=== PATIENT | female | born 1945 | race Caucasian/White ===

== ENCOUNTER 2017-07-26 17:18 | Observation (INO) | payer MEDICARE, OTHER, SELFPAY ==
[2017-07-26] VITALS (7 sets, daily range): BP systolic 123–190; BP diastolic 53–73; PULSE 45–62; RESP 18; TEMP 36.3–36.7; O2SAT 96–99; BMI 30.1
--- NOTE | 2017-07-26 17:59 | PCM.HP.STD ---
Problem List (1) Chest pain Status: Acute (2) Syncope Status: Acute (3) LBBB (left bundle branch block) Status: Chronic (4) HTN (hypertension) Status: Chronic (5) Lactic acidosis Status: Acute History of Present Illness Date of Admission: 07/26/17 Chief Complaint: chest pain. syncope The patient is a 71 year old F who is on the toilet and then had severe abdominal pain then had a syncopal episode. Patient was when she came to patient was not feeling well and told her to contact EMS. Patient walked out to EMS and then started expressing left upper shoulder chest pain as well as numbness down her left arm. Patient did receive nitroglycerin which resolved that. Patient has never had chest pain before and never had abdominal pain like this before. Went to [facility] and patient received aspirin, Tylenol and nitroglycerin. Patient had a CAT scan of her abdomen pelvis that showed some constipation. Patient stated that she did have a bowel movement before the syncopal episode and also after the CAT scan that were normal. She is currently symptom-free at this time. [] Past Medical History Past Medical History (Chronic Problems): Chronic Problems LBBB (left bundle branch block) (Chronic) HTN (hypertension) (Chronic) Allergies hydrochlorothiazide Allergy (Verified 07/26/17 17:37) Unknown codeine Adverse Reaction (Verified 07/26/17 17:37) Unknown Home Medications: Ambulatory Orders Medication Instructions Recorded Aspirin 81 mg PO DAILY 07/26/17 Lisinopril [Zestril] 5 mg PO DAILY 07/26/17 Surgical History: cholecystectomy, hysterectomy Psychiatric History: No pertinent psych hx Smoking Status: Never smoker Tobacco Use: Non-smoker Alcohol: None - *Family History Maternal History Items: Heart Disease Paternal History Items: Heart Disease Sibling History Items: Clotting Disorder, Heart Disease Review of Systems Constitutional: Denies: Chills, Fever, Weight Change Eyes: Denies: Blurred vision, Double vision HEENT: Denies: Head Aches, Sinus Congestion, Sinus Drainage Cardiovascular: Reports: Chest Pain. Denies: Edema Respiratory: Denies: Cough, Shortness of breath at rest, Sputum production Gastrointestinal: Reports: Abdominal Pain. Denies: Constipation, Diarrhea, Nausea, Vomiting Genitourinary: Denies: Dysuria, Frequency Musculoskeletal: Denies: Joint Pain, Joint Tenderness Skin: Denies: Rash, Wounds Neurological: Denies: Numbness, Tingling, Focal weakness Psychiatric: Denies: Anxiety, Depression Hematologic/ Lymphatic: Denies: Easy Bruising, Easy Bleeding, Hx of blood clot VTE Information - Inpt Only VTE Present on Admission: No VTE Pharm Prophylaxis ordered?: Yes Patient Problems: Active and Suspected Problems Chest pain (Acute) Syncope (Acute) Lactic acidosis (Acute) - Physical Exam General: Alert, Cooperative, No apparent distress HEENT: Atraumatic, Normocephalic Oral: Moist Mucosa, No Gingival or Mucosal Lesions/ Ulcerations Neck: No Nodes, Thyroid Normal Size and Texture Lungs: Clear to auscultation, Normal air movement, No rhonchi, No wheeze Cardiovascular: Regular rate, Regular Rhythm, Normal S1, Normal S2, No murmurs Abdomen: Bowel Sounds Present, Soft, Non Tender, Non-Distended, No Hepato-splenomegaly Extremities: No clubbing, No cyanosis, No edema, Capillary Refill Less than 3 Seconds, No Calf Tenderness Skin: No rashes, No breakdown Musculoskeletal: No Tenderness to Palpation of Joints or Extremities, No Muscle Wasting Neurological: Muscle tone normal, Sensory exam intact to light touch and pain Psych/Mental Status: Normal Affect, Appropriate Vital Signs Temp Pulse Resp BP Pulse Ox 36.7 C 45 L 18 190/59 H 99 07/26/17 17:20 07/26/17 17:34 07/26/17 17:20 07/26/17 17:20 07/26/17 17:20 Oxygen Delivery Method Room Air Weight: 74.7 kg Body Mass Index (BMI) 30.1 EKG reviewed and showed normal sinus rhythm with a left bundle branch block. No prior EKG available to be compared to. Urinalysis was unremarkable. BMP: Sodium 133, potassium 4.1, glucose 140, creatinine 0.87 CBC: White count 6.8, hemoglobin 14, platelets 241. Troponin negative ?1. INR 0.[address] the abdomen pelvis: Prominent amount of stool in the rectum. Early fecal impaction is difficult to exclude. Colonic diverticulosis without evidence of diverticulitis. Assessment/Plan Active and Suspected Problems Chest pain (Acute) Syncope (Acute) Lactic acidosis (Acute) 1. Chest pain Patient certainly with risks with her Left bundle branch block and hypertension and family history Cycle troponins Nuclear stress test Aspirin Check a lipid panel 2. Syncope Likely vasovagal due to the abdominal pain Patient will be monitored for any further events. 3. Hypertension Patient blood pressure has been in the 180s. Patient to resume her lisinopril 5 mg daily. Will have hydralazine as needed. 4. Constipation I am unclear if this is what caused her abdominal pain or not. But patient stated that after her CAT scan she did have additional bowel movements. Patient clinically is asymptomatic from her constipation. Abdominal pain may have been some transient ischemic colitis but no evidence on the CAT scan. 5. DVT prophylaxis with low molecular weight heparin 6. Advanced care planning: I discussed with the patient, patient wishes to be full code. Code Visit OBSV E&M: 43626 Initial observation care L3
--- NOTE | 2017-07-26 18:09 | HP.PCM_ITS ---
Problem List (1) Chest pain Status: Acute (2) Syncope Status: Acute (3) LBBB (left bundle branch block) Status: Chronic (4) HTN (hypertension) Status: Chronic (5) Lactic acidosis Status: Acute History of Present Illness Date of Admission: 07/26/17 Chief Complaint: chest pain. syncope The patient is a 71 year old F who is on the toilet and then had severe abdominal pain then had a syncopal episode. Patient was when she came to patient was not feeling well and told her to contact EMS. Patient walked out to EMS and then started expressing left upper shoulder chest pain as well as numbness down her left arm. Patient did receive nitroglycerin which resolved that. Patient has never had chest pain before and never had abdominal pain like this before. Went to [facility] and patient received aspirin, Tylenol and nitroglycerin. Patient had a CAT scan of her abdomen pelvis that showed some constipation. Patient stated that she did have a bowel movement before the syncopal episode and also after the CAT scan that were normal. She is currently symptom-free at this time. [] Past Medical History Past Medical History (Chronic Problems): Chronic Problems LBBB (left bundle branch block) (Chronic) HTN (hypertension) (Chronic) Allergies hydrochlorothiazide Allergy (Verified 07/26/17 17:37) Unknown codeine Adverse Reaction (Verified 07/26/17 17:37) Unknown Home Medications: Ambulatory Orders Medication Instructions Recorded Aspirin 81 mg PO DAILY 07/26/17 Lisinopril [Zestril] 5 mg PO DAILY 07/26/17 Surgical History: cholecystectomy, hysterectomy Psychiatric History: No pertinent psych hx Smoking Status: Never smoker Tobacco Use: Non-smoker Alcohol: None - *Family History Maternal History Items: Heart Disease Paternal History Items: Heart Disease Sibling History Items: Clotting Disorder, Heart Disease Review of Systems Constitutional: Denies: Chills, Fever, Weight Change Eyes: Denies: Blurred vision, Double vision HEENT: Denies: Head Aches, Sinus Congestion, Sinus Drainage Cardiovascular: Reports: Chest Pain. Denies: Edema Respiratory: Denies: Cough, Shortness of breath at rest, Sputum production Gastrointestinal: Reports: Abdominal Pain. Denies: Constipation, Diarrhea, Nausea, Vomiting Genitourinary: Denies: Dysuria, Frequency Musculoskeletal: Denies: Joint Pain, Joint Tenderness Skin: Denies: Rash, Wounds Neurological: Denies: Numbness, Tingling, Focal weakness Psychiatric: Denies: Anxiety, Depression Hematologic/ Lymphatic: Denies: Easy Bruising, Easy Bleeding, Hx of blood clot VTE Information - Inpt Only VTE Present on Admission: No VTE Pharm Prophylaxis ordered?: Yes Patient Problems: Active and Suspected Problems Chest pain (Acute) Syncope (Acute) Lactic acidosis (Acute) - Physical Exam General: Alert, Cooperative, No apparent distress HEENT: Atraumatic, Normocephalic Oral: Moist Mucosa, No Gingival or Mucosal Lesions/ Ulcerations Neck: No Nodes, Thyroid Normal Size and Texture Lungs: Clear to auscultation, Normal air movement, No rhonchi, No wheeze Cardiovascular: Regular rate, Regular Rhythm, Normal S1, Normal S2, No murmurs Abdomen: Bowel Sounds Present, Soft, Non Tender, Non-Distended, No Hepato- splenomegaly Extremities: No clubbing, No cyanosis, No edema, Capillary Refill Less than 3 Seconds, No Calf Tenderness Skin: No rashes, No breakdown Musculoskeletal: No Tenderness to Palpation of Joints or Extremities, No Muscle Wasting Neurological: Muscle tone normal, Sensory exam intact to light touch and pain Psych/Mental Status: Normal Affect, Appropriate Vital Signs Temp Pulse Resp BP Pulse Ox 36.7 C 45 L 18 190/59 H 99 07/26/17 17:20 07/26/17 17:34 07/26/17 17:20 07/26/17 17:20 07/26/17 17:20 Oxygen Delivery Method Room Air Weight: 74.7 kg Body Mass Index (BMI) 30.1 EKG reviewed and showed normal sinus rhythm with a left bundle branch block. No prior EKG available to be compared to. Urinalysis was unremarkable. BMP: Sodium 133, potassium 4.1, glucose 140, creatinine 0.87 CBC: White count 6.8, hemoglobin 14, platelets 241. Troponin negative ?1. INR 0.[address] the abdomen pelvis: Prominent amount of stool in the rectum. Early fecal impaction is difficult to exclude. Colonic diverticulosis without evidence of diverticulitis. Assessment/Plan Active and Suspected Problems Chest pain (Acute) Syncope (Acute) Lactic acidosis (Acute) 1. Chest pain * Patient certainly with risks with her Left bundle branch block and hypertension and family history * Cycle troponins * Nuclear stress test * Aspirin * Check a lipid panel 2. Syncope * Likely vasovagal due to the abdominal pain * Patient will be monitored for any further events. 3. Hypertension * Patient blood pressure has been in the 180s. Patient to resume her lisinopril 5 mg daily. Will have hydralazine as needed. 4. Constipation * I am unclear if this is what caused her abdominal pain or not. But patient stated that after her CAT scan she did have additional bowel movements. Patient clinically is asymptomatic from her constipation. * Abdominal pain may have been some transient ischemic colitis but no evidence on the CAT scan. 5. DVT prophylaxis with low molecular weight heparin 6. Advanced care planning: I discussed with the patient, patient wishes to be full code. Code Visit OBSV E&M: 92109 Initial observation care L3
[2017-07-26] MEDS: 0.9% Normal Saline 1,000 ML 125 ML IV (18:23)
[2017-07-26 21:38] LABS: Lactic Acid 2.6 mmol/L (0.4-2.0)
[2017-07-26] MEDS: Lisinopril 5 MG Tablet PO (21:45)
[2017-07-26] MEDS: Magnesium Oxide 400 MG Tablet PO (21:45)
[2017-07-27] VITALS (7 sets, daily range): BP systolic 134–157; BP diastolic 72–93; PULSE 52–63; RESP 16–18; TEMP 36.4–36.6; O2SAT 97–100
[2017-07-27 00:42] LABS: Reflex Lactate? Y
[2017-07-27] MEDS: 0.9% Normal Saline 1,000 ML 125 ML IV (02:12)
[2017-07-27 05:29] LABS: Hemoglobin 12.5 g/dl (12.0-15.0); Mean Corp Hgb Conc 33.8 g/gl (32-36); Mean Corpuscular Volume 94.6 fL (81-99); Mean Platelet Vol. 9.2 fl (6.2-12.0); Platelet Count 199 K/mm3 (150-450); RBC Distribution Width CV 13.1 % (11.6-14.6); RBC Distribution Width SD 44.4 fl (35.1-43.9); Red Blood Count 3.91 M/mm3 (4.2-5.4); White Blood Count 6.8 K/mm3 (4.4-11.0)
[2017-07-27 05:36] LABS: Scan Indicated on CBC? Y/N NO
[2017-07-27 05:42] LABS: Partial Thromboplast Time 26.7 Seconds (24.1-36.2); Prothrombin Time (Protime)PT. 12.9 SECONDS (11.7-14.9)
[2017-07-27 05:49] LABS: Anion Gap 6 (5-15); BUN 14 mg/dL (7-18); BUN/Creat Ratio 22.1 RATIO (10-20); Calcium,Total 8.5 mg/dL (8.5-10.1); Chloride 108 mmol/L (98-107); Creatinine, Serum 0.63 mg/dL (0.55-1.02); EST Glomerular Filtration Rate 98 mL/min (>60); Est Glom Filt Rate - Afr Amer 118 mL/min (>60); Estimated Creatinine Clearance 39.63 ml/min; Glucose 95 mg/dL (74-106); Potassium 5.1 mmol/L (3.5-5.1); Sodium Level 142 mmol/L (136-145); Thyroid Stim Hormone (TSH) 3.59 uIU/mL (0.358-3.74)
[2017-07-27 05:50] LABS: Lactic Acid 0.9 mmol/L (0.4-2.0)
[2017-07-27] MEDS: Aspirin E.C. 81 MG Tablet PO (05:53)
--- NOTE | 2017-07-27 05:55 | EKG12_ITS ---
Test Reason : AM EKG Blood Pressure : / mmHG Vent. Rate : 051 BPM Atrial Rate : 051 BPM P-R Int : 208 ms QRS Dur : 150 ms QT Int : 512 ms P-R-T Axes : 069 -41 116 degrees QTc Int : 471 ms Sinus bradycardia Left axis deviation Left bundle branch block Abnormal ECG No previous ECGs available Confirmed by KATHERIN PAYNE, MARY ([id number]), material expeditor SURESH GARZA ([id number] on 07/29/2017 2:44:13 PM Referred By: DR GASTON Confirmed By:MARY PANDEY MD
[2017-07-27] MEDS: Magnesium Oxide 400 MG Tablet PO (09:18)
[2017-07-27] MEDS: 0.9% NaCl Peripheral Flush Adult/Peds IV (09:18)
--- NOTE | 2017-07-27 09:31 | STRESSREP ---
Stress Test Report Pharmacologic myocardial perfusion stress test. 71-year-old lady with a history of chest pain. Stress protocol: Resting EKG demonstrates normal sinus rhythm with a rate of 51 bpm and left bundle branch block pattern noted. Resting blood pressure is 166/70 mmHg. 0.4 mg of regadenoson was infused per usual protocol followed by rapid intravenous saline flush injection continuous EKG monitoring was performed. The patient maintained sinus rhythm throughout the recording. The maximum heart rate attained was 85 bpm which was 57% of the maximum predicted heart rate the maximum workload attained was 1 metabolic equivalent. At rest there were no ST or T-wave changes noted to suggest abnormal flow reserve at peak infusion no ST or T-wave changes were noted to suggest abnormal flow reserve. Resting blood pressure is 166/70 with a final blood pressure 150/70 mmHg. Myocardial perfusion protocol. 11.3 mCi of technetium 99m sestamibi was injected at rest. 0.4 mg of regadenoson was infused per usual protocol at peak infusion 32.9 mCi of technetium 99m sestamibi was injected. Stress images were obtained. Stress and rest images were reconstructed and compared in the short axis vertical long and horizontal long axis. Gated images were also obtained. Perfusion SPECT analysis: Review of the stress images demonstrate normal uptake of tracer noted in all areas of the myocardium. The resting images similarly demonstrated normal uptake of tracer noted in all areas of the myocardium. No Areas of reversibility were noted to suggest ischemia or infarct. Gated SPECT analysis. The gated ejection fraction is 80%. Conclusion: Normal pharmacologic myocardial perfusion stress test with no evidence of ischemia. Preserved ejection fraction.
[2017-07-27] MEDS: Enoxaparin 40 MG/0.4 ML Syringe SC (10:47)
--- NOTE | 2017-07-27 11:23 | PCM.DC ---
- Discharge Diagnoses Current Active Problems: Current Active and Chronic Problems Chest pain (Acute) Syncope (Acute) LBBB (left bundle branch block) (Chronic) HTN (hypertension) (Chronic) Lactic acidosis (Acute) Hypertension, Uncontrolled Elevated lactic acid, resolved, suspected secondary to mild dehydration Syncopal event suspected secondary to transient abdominal pain, resolved, constipation, likely vasovagal Chest pain, suspected non-cardiac, unclear specific etiology Abdominal pain, transient, resolved, secondary to constipation You will use the following diet at home:: Cardiac, High fiber Your food should be the consistency of: Regular Your liquids should be the consistency of: Regular/Thin Discharge Activity: Return to Normal Activity May resume sexual activity in: No Restrictions Weight Bearing Status: Weight bearing as tolerated Call your doctor if you observe: Fever of 101 or Higher, Inability to urinate, Inability to have a bowel movement, Shortness of breath, Dizziness, Fainting spells, Chest pain, Uncontrolled pain Instructions: ED Chest Pain NonCardiac, Treating Constipation, Discharge Instructions: Eating a High Fiber Diet, Taking NARENDRA Inhibitors, Controlling High Blood Pressure, Low-Salt Choices Additional Instructions: We have increased your lisinopril secondary to elevated blood pressure noted during your admission. Please have repeat basic metabolic panel at follow-up with your primary care physician. Allergies/Adverse Reactions: Allergies hydrochlorothiazide Allergy (Verified 07/26/17 17:37) Unknown codeine Adverse Reaction (Verified 07/26/17 17:37) Unknown Medications to take at Discharge Aspirin 81 mg PO DAILY 07/26/17 Magnesium Oxide [Mag-Ox 400] 400 mg PO BID 07/26/17 Potassium Chloride 20 meq PO BID 07/26/17 Lisinopril [Prinivil] 10 mg PO DAILY #30 tab 07/27/17 Sennosides/Docusate Sodium [Senna-Docusate Sodium Tablet] 1 ea PO DAILY PRN #30 tab 07/27/17 The following prescriptions were given: Lisinopril [Prinivil] 10 mg PO DAILY #30 tab Sennosides/Docusate Sodium [Senna-Docusate Sodium Tablet] 1 ea PO DAILY PRN #30 tab PRN Reason: Constipation Please follow up with your Primary Care Physician in: Follow-up with your Primary Care Physician within 3-5 days. Proposed Discharge Date: 07/27/17
--- NOTE | 2017-07-27 11:32 | PCM.DC.SUM ---
Discharge Date and Diagnosis Date of Admission: 07/26/17 Date of Discharge: 07/27/17 - Primary Discharge Diagnosis Active and Suspected Problems Chest pain (Acute) Syncope (Acute) Lactic acidosis (Acute) Hypertension, Uncontrolled Elevated lactic acid, resolved, suspected secondary to mild dehydration Syncopal event suspected secondary to transient abdominal pain, resolved, constipation, likely vasovagal Chest pain, suspected non-cardiac, unclear specific etiology Abdominal pain, transient, resolved, secondary to constipation - Secondary Discharge Diagnosis Chronic Problems LBBB (left bundle branch block) (Chronic) HTN (hypertension) (Chronic) Hospital Course and Treatment Imaging Results: 07/27/17 05:45 Nuclear Stress Test - Chemical [NM] Routine Operations: None Procedures: EKG, Stress test Summary of Care Provided: The patient is a 71 y/o F w/ PMHx: HTN, LBBB, Obesity, Constipation who presents to the [facility] ED on 07/26/17 with history of onset transient sudden sharp abdominal discomfort with syncopal event following while on the toilet with no trauma with following this onset LUE and L shoulder discomfort with associated paresthesias which resolved following EMS administration NG supplementation. The patient was initially evaluated at [facility] ED where she received, asa, tylenol, NG. CT scan was obtained at their facility and only notable for appearance of constipation. Her abdominal pain complete resolved prior to presentation to [facility] and she had no further abdominal complaints. Additional OSH ED evaluation included elevated BP, EKG sinus rhythm w/ LBBB without evidence of acute ischemia, CXR without acute process, unremarkable CBC and chemistry, cardiac enzyme set x 1 normal. The patient was admitted as direct admission to the PCU, maintained on cardiac telemetry, serial cardiac enzymes were obtained as well as serial EKGs which remained unremarkable. Patient underwent AM 07/17/17 stress testing which was noted to be negative for inducible ischemia. Patient during admission did have elevated BP, thus her notably low dose lisinopril was increased with recommendation for increase further as needed to achieve goal. Recommended repeat BMP with PCP given alterations to this regimen. Patient was discharged to home in stable condition with recommendation for follow-up with primary care physician within 3-5 days. DAY OF DISCHARGE PROGRESS NOTE: Subjective: Patient without acute event overnight per self and nursing report. She notes complete continued resolution of prior abdominal discomfort as well as chest discomfort. Patient denies fever, chills, nausea, emesis or dyspnea. Patient agreeable to discharge to home. Patient will be discharged with follow-up with primary care physician within 3-5 days. She was interested in local cardiologists as notes following w/ Cardiology for her HTN and interested in changing to a local physician, options were given to her. Objective: T 97.7, HR 63, BP 154/73, RR 17, 100% on RA. Physical Examination: General: awake, alert, oriented x 3 and cooperative, seated upright in the bed, NAD. Skin: normal color, turgor, no icterus, cyanosis. HEENT: AT/NC, EOMI, PERRLA, MMM. Lungs: CTA bilaterally, moderate effort, mild decrease BL bases, no rales, ronchi or wheezing; Heart: Regular rate and rhythm; no gallop, rub audible. Abdomen: soft, NTTP, ND, normal BS. Extremities: no cyanosis, clubbing, or edema. Neurological: patient awake, alert, oriented x 3; cognitive function appears intact upon questioning,; pupils equally reactive to light and accomodation; cranial nerves II-XII grossly normal, moving all 4 extremities, strength appropriate. Psychiatric: affect appears normal, no acute evidence of depressive or anxiety feelings. Assessment and Plan: Please see hospital summary above. Discharge Activity: Return to Normal Activity May resume sexual activity in: No Restrictions Weight Bearing Status: Weight bearing as tolerated Call your doctor if you observe: Fever of 101 or Higher, Inability to urinate, Inability to have a bowel movement, Shortness of breath, Dizziness, Fainting spells, Chest pain, Uncontrolled pain Home Medications: Medications to take at Discharge Aspirin 81 mg PO DAILY 07/26/17 Magnesium Oxide [Mag-Ox 400] 400 mg PO BID 07/26/17 Potassium Chloride 20 meq PO BID 07/26/17 Lisinopril [Prinivil] 10 mg PO DAILY #30 tab 07/27/17 Sennosides/Docusate Sodium [Senna-Docusate Sodium Tablet] 1 ea PO DAILY PRN #30 tab 07/27/17 Following Prescrptions Were Given to Patient: Lisinopril [Prinivil] 10 mg PO DAILY #30 tab Sennosides/Docusate Sodium [Senna-Docusate Sodium Tablet] 1 ea PO DAILY PRN #30 tab PRN Reason: Constipation Please follow up with your Primary Care Physician in: Follow-up with your Primary Care Physician within 3-5 days. Patient Instructions: Taking NARENDRA Inhibitors, Controlling High Blood Pressure, Low-Salt Choices, Treating Constipation, Discharge Instructions: Eating a High Fiber Diet, ED Chest Pain NonCardiac Disposition: Home Minutes spent on discharge:: 30 Patient Condition:: Fair Meaningful Use Info Meaningful Use Diagnoses (Choose all that apply): None applicable Code Visit OBSV E&M: 93425 Observation care discharge
[2017-07-27] MEDS: Lisinopril 10 MG Tablet PO (12:49)
== END 2017-07-27 11:31 | disposition home or self-care (01) ==
PROVIDERS: Internal Medicine; Admitting Provider Internal Medicine; Visit Provider Family Medicine
DX: R07.89 Other chest pain (principal); I10 Essential (primary) hypertension; I44.7 Left bundle-branch block, unspecified; R55 Syncope and collapse; E87.2 Acidosis; E66.9 Obesity, unspecified; Z68.30 Body mass index [BMI] 30.0-30.9, adult; Z71.3 Dietary counseling and surveillance; K59.00 Constipation, unspecified; R20.0 Anesthesia of skin; R10.9 Unspecified abdominal pain
CPT/HCPCS: 36415; 78452; 80048; 83605; 84443; 84484; 85027; 85610; 85730; 93005; 93017; 96361; 96372; 96374; 99218; A9500; J7030; A4216; G0378; G0379; J2785

== ENCOUNTER → 2017-09-23 12:35 | Outpatient (CLI) | payer MEDICARE, OTHER, SELFPAY ==
--- NOTE | 2017-09-23 12:37 | ECHOD_ITS ---
Reason For Study: SYNCOPE/NEAR SYNCOPE Procedure This was a 2D Doppler, Color Flow transthoracic echocardiogram. Exam performed in department. Left Ventricle Normal size and thickness. The estimated ejection fraction is 65 %. Stage 2 diastolic dysfunction. No regional wall motion abnormalities noted. Right Ventricle Normal size and thickness. Normal systolic function. Atria The left atrium is moderately enlarged. Normal right atrium. Normal atrial septum. Mitral Valve Mild diffuse mitral valve thickening. Moderate mitral annular calcification extending into the posterior leaflet. Trivial eccentric mitral valve insufficiency. Tricuspid Valve Normal tricuspid valve. Moderate (2+) tricuspid valve insufficiency. Right ventricular systolic pressure estimated to be 38 mmHg. Mild pulmonary hypertension. Aortic Valve Trisinus/trileaflet aortic valve. Pulmonic Valve Normal pulmonic valve. Great Vessels Normal aortic root. Normal arch. Normal inferior vena cava. Inferior vena cava collapse with sniff. Pericardium/Pleural No pericardial effusion. MMode/2D Measurements & Calculations LVIDd: 3.7 cm IVSd: 1.2 cm Ao root diam: 3.0 cm LVIDs: 2.7 cm LVPWd: 1.2 cm RVDd: 3.2 cm FS: 28.1 % LAV(MOD-bp): 76.1 ml EDV(MOD-sp4): 86.8 ml SV(MOD-sp4): 56.2 ml LAV(MOD-bp) Indexed: 43.4 ml/m2 ESV(MOD-sp4): 30.6 ml LAV(MOD-sp2): 71.9 ml EF(MOD-sp4): 64.7 % LAV(MOD-sp4): 77.6 ml LA A4 area: 22.7 cm2 RA A4 area: 10.8 cm2 Time Measurements MV dec time: 0.16 sec Doppler Measurements & Calculations MV E max nelson: 102.0 cm/sec Lat Peak E' Nelson: 9.8 cm/sec Med Peak E' Nelson: 7.4 cm/sec MV A max nelson: 72.9 cm/sec E/E' lat: 10.4 E/E' med: 13.7 MV E/A: 1.4 Ao V2 max: 165.7 cm/sec LV V1 max: 119.1 cm/sec PA V2 max: 109.5 cm/sec Ao max P.0 mmHg LV V1 max P.7 mmHg TR max nelson: 295.3 cm/sec TR max P.9 mmHg Interpretation Summary The estimated ejection fraction is 65 %. Stage 2 diastolic dysfunction. The left atrium is moderately enlarged. Trivial eccentric mitral valve insufficiency. Moderate (2+) tricuspid valve insufficiency. Right ventricular systolic pressure estimated to be 38 mmHg. Mild pulmonary hypertension. There is no comparison study available. Ordering Physician: Jose Armando Sparks Referring Physician: GABI CHARLES Performed By: Hanh Byrd RDCS
== END ==
PROVIDERS: Visit Provider Internal Medicine Cardiovascular Disease
DX: R94.31 Abnormal electrocardiogram [ECG] [EKG] (principal)
CPT/HCPCS: 93306

== ENCOUNTER → 2017-09-25 07:37 | Outpatient (CLI) | payer MEDICARE, OTHER, SELFPAY ==
[2017-09-25 08:50] LABS: Homocysteine 9.4 umol/L (3.2-10.7)
[2017-09-25 09:06] LABS: AST(SGOT) 23 U/L (15-37); Alanine Aminotransfer ALT/SGPT 29 U/L (13-56); Albumin, Serum 3.7 g/dL (3.2-5.0); Alkaline Phosphatase 87 U/L (45-117); Cholesterol 185 mg/dL (200); Globulin 3.3 g/dL (2.2-4.2); High Density Lipoprotein 58 mg/dL; Triglycerides 116 mg/dL; Very Low Density Lipoprotein 23 mg/dL (5-40)
[2017-09-29 15:18] LABS: Antithrombin 3 Function 119 % (75-135); Protein C, Functional 120 % (73-180); Protein S, Funtional 103 % (63-140)
== END ==
PROVIDERS: Visit Provider Internal Medicine Cardiovascular Disease
DX: I44.7 Left bundle-branch block, unspecified (principal); R94.31 Abnormal electrocardiogram [ECG] [EKG]; I10 Essential (primary) hypertension; R55 Syncope and collapse; Z82.49 Family history of ischemic heart disease and other diseases of the circulatory system
CPT/HCPCS: 36415; 80061; 80076; 81241; 83090; 85300; 85303; 85306

== ENCOUNTER → 2017-09-30 12:06 | Outpatient (CLI) | payer MEDICARE, OTHER, SELFPAY ==
--- NOTE | 2017-09-30 12:09 | STE_ITS ---
Reason For Study: Syncope, Abnormal EKG, BBB, HTN Stress Results Protocol: Thony Protocol Maximum Predicted HR: 147 bpm Target HR: 125 bpm% Max imum Predicted HR: 91 % DurationHeart Rate Stage (mm:ss) (bpm) BPCom ment Baseline 52 122/78 No Chest Pain Thony Protocol Stage I 3:00 11 0 148/72Mild Chest Pressure, Justin Shoulder Pain Thony Protocol Stage II 3:00 11 7 160/76Mild Chest Tightness, Justin Shoulder Pain Thony Protocol Stage III 1:01 13 4 / Mil d Left Side Chest Pressure, Justin Shoulder Pain Recovery 68 130/78 No Chest Pain, No Shoulder Pain Stress Duration: 7:01 mm:ss Maximum Stress HR: 134 bpmM ETS: 10 Baseline Echocardiogram Findings The estimated ejection fraction is 65 %. Septal motion consistent with IVCD. Stress Echo Wall motion Data Resting WMIntermediate WMStress WM Resting Wall Motion Wall Motion Stress No regional wall motion Mid-Anterior : Mildly abnormalities noted. hypokinetic. Anterior [place] : Mildly hypokinetic. EKG Data The baseline ECG demonstrates normal sinus rhythm with at rate of _ beats per minute. The patient exercised according to the regular Thony protocol for a total duration of 7:01. The maximum heart rate attained was 137 beats per minute. This was 93% of maximum predicted heart rate. The patient exercised into stage 3 of the Thony protocol. Interpretation Summary Mid-Anterior : Mildly hypokinetic Anterior [place] : Mildly hypokinetic Abnormal, adequate, treadmill echocardiogram. Positive for ischemia by anginal symptoms with chest pain radiating to her shoulder, as well as evidence of possible anterior apical hypokinesis at peak exercise. Rare PACs during exercise. Decreased final LVEF of 60%. Test terminated due to leg discomfort. Appropriate blood pressure response to exercise. Average exercise capacity for age. Chest pain resolved by several minutes into recovery. Ordering Physician: Jose Armando Sparks Referring Physician: Jose Armando Sparks Performed By: Hanh Byrd, KATIE
== END ==
PROVIDERS: Visit Provider Internal Medicine Cardiovascular Disease
DX: I44.7 Left bundle-branch block, unspecified (principal); R55 Syncope and collapse; I10 Essential (primary) hypertension; R94.31 Abnormal electrocardiogram [ECG] [EKG]
CPT/HCPCS: 93017; 93350

== ENCOUNTER → 2017-10-02 08:55 | Outpatient (CLI) | payer MEDICARE, OTHER, SELFPAY ==
[2017-10-02 09:54] LABS: Hematocrit 39.7 % (37-47); Hemoglobin 13.5 g/dl (12.0-15.0); Mean Corpuscular Hgb 32.5 pg (27.0-32.0); Mean Corpuscular Volume 95.4 fL (81-99); Mean Platelet Vol. 9.4 fl (6.2-12.0); Platelet Count 228 K/mm3 (150-450); RBC Distribution Width CV 13.1 % (11.6-14.6); Red Blood Count 4.16 M/mm3 (4.2-5.4); White Blood Count 5.9 K/mm3 (4.4-11.0)
[2017-10-02 09:58] LABS: Scan Indicated on CBC? Y/N NO
[2017-10-02 10:03] LABS: Partial Thromboplast Time 28.5 Seconds (24.1-36.2); Prothrombin Time (Protime)PT. 13.2 SECONDS (11.7-14.9)
[2017-10-02 10:25] LABS: Anion Gap 6 (5-15); BUN 14 mg/dL (7-18); BUN/Creat Ratio 21.2 RATIO (10-20); Calcium,Total 9.1 mg/dL (8.5-10.1); Chloride 104 mmol/L (98-107); Creatinine, Serum 0.66 mg/dL (0.55-1.02); EST Glomerular Filtration Rate 93 mL/min (>60); Est Glom Filt Rate - Afr Amer 113 mL/min (>60); Glucose 90 mg/dL (74-106); Sodium Level 139 mmol/L (136-145)
== END ==
PROVIDERS: Visit Provider Internal Medicine Cardiovascular Disease
DX: R94.31 Abnormal electrocardiogram [ECG] [EKG] (principal); R94.39 Abnormal result of other cardiovascular function study
CPT/HCPCS: 36415; 80048; 85027; 85610; 85730

== ENCOUNTER → 2017-10-05 06:32 | Day surgery (SDC) | payer MEDICARE, OTHER, SELFPAY ==
[2017-10-05 07:11] VITALS: BMI 30.2
--- NOTE | 2017-10-05 07:56 | PCM.PN.BLA ---
Progress Note [facility] [address] [place] [address] OFFICE VISIT Date of Service: 09/01/17 MR#:[id number] Name: CHAS HERZOG #:[id number] : 1945 Provider:Jose Armando Sparks MD Age/Sex: 71/F [place] [place] Status:Signed with Addenda ADDENDUM by Keysha Mares on 10/05/17 at 0755 Addendum entered and electronically signed by CHARLOTTE Orellana 10/05/17 07:55: Pt underwent a stress echocardiogram last week, this was positive for ischemia by anginal symptoms with chest pain radiating to her shoulder, as well as evidence of possible anterior apical hypokinesis at peak exercise. Rare PACs during exercise. Decreased final LVEF of 60%. Test terminated due to leg discomfort. Appropriate blood pressure response to exercise. Average exercise capacity for age. Chest pain resolved by several minutes into recovery. I have re-examined the patient for her hheart cath this morning. There are no clinical changes since the date of exam. Assessment & Plan 1. Vaso vagal episode R55 Orders Orders: Stress Test Echo w/o Contrast 09/01/17 Jose Armando Sparks MD Antithrombin 3 Function 09/01/17 Jose Armando Sparks MD Fact V Leiden Mutation 09/01/17 Jose Armando Sparks MD Protein C, Functional 09/01/17 Jose Armando Sparks MD Protein S, Functional 09/01/17 Jose Armando Sparks MD Homocysteine 09/01/17 Jose Armando Sparks MD 2. LBBB (left bundle branch block) I44.7 Orders Orders: Liver Profile 09/01/17 Jose Armando Sparks MD Stress Test Echo w/o Contrast 09/01/17 Jose Armando Sparks MD Antithrombin 3 Function 09/01/17 Jose Armando Sparks MD Fact V Leiden Mutation 09/01/17 Jose Armando Sparks MD Protein C, Functional 09/01/17 Jose Armando Sparks MD Protein S, Functional 09/01/17 Jose Armando Sparks MD Homocysteine 09/01/17 Jose Amrando Sparks MD 3. HTN (hypertension) I10 Orders Orders: Lipid Profile 09/01/17 Jose Armando Sparks MD Liver Profile 09/01/17 Jose Armando Sparks MD Stress Test Echo w/o Contrast 09/01/17 Jose Armando Sparks MD Antithrombin 3 Function 09/01/17 Jose Armando Sparks MD Fact V Leiden Mutation 09/01/17 Jose Armando Sparks MD Protein C, Functional 09/01/17 Jose Armando Sparks MD Protein S, Functional 09/01/17 Jose Armando Sparks MD Homocysteine 09/01/17 Jose Armando Sparks MD Plan Detail Other Orders Orders: Liver Profile 09/01/17 R94.31 Jose Armando Sparks MD Echo Complete 09/01/17 R94.31 Jose Armando Sparks MD Stress Test Echo w/o Contrast 09/01/17 R94.31 Jose Armando Sparks MD Antithrombin 3 Function 09/01/17 Z82.49 Jose Armando Sparks MD Fact V Leiden Mutation 09/01/17 Z82.49 Jose Armando Sparks MD Protein C, Functional 09/01/17 Z82.49 Jose Armando Sparks MD Protein S, Functional 09/01/17 Z82.49 Jose Armando Sparks MD Homocysteine 09/01/17 Z82.49 Jose Armando Sparks MD Other Medications Discontinued: lisinopril Discontinued Reason: Pt no longer taking 10 mg PO DAILY Raissa Torre Follow Up +6m (Bridger) 10/05/17 0755<Electronically signed by Keysha POTRER> Date Keysha Mares cc: ~* Signed HPI HPI Chief Complaint: Syncope Details: CHAS HERZOG, is a 71 nondiabetic female with a history of hypertension, positive family history of coronary disease in his sister who at age 54 of a myocardial infarction although this may have also been a pulmonary embolism, sister with multiple blood clots, and 3 younger brothers all with blood clot issues. She is a lifelong non-smoker, nondrinker. She is noted to have had increased blood pressure over the last 2 years and was initially placed on lisinopril. The patient developed abdominal pain on 07/26/17 and became lightheaded and dizzy. She walked to the bathroom and sat down on the toilet with the assistance of her and then subsequently passed out. EMS was called and the patient was brought to [facility] then transferred to [facility] where she was found to have a previously known left bundle branch block. CT of the abdomen was performed which demonstrated no significant changes. She was ruled out for myocardial infarction and underwent a non-walking nuclear stress test which was reportedly negative. She did not undergo an echocardiogram or cardiology consultation. Subsequent to that her lisinopril was increased but then she was found to be hyperkalemic and was switched to amlodipine. She denies any chest pain, angina, known blood clots in herself, shortness of breath or dyspnea on exertion. In our office today her blood pressure is 140/70, pulse is 52 and regular. Her physical exam demonstrates clear lungs bilaterally, no carotid bruits, cardiac exam is regular rate and rhythm, no murmurs are detected. EKG dated 07/27/17 showed normal sinus rhythm with left bundle branch block, no acute changes noted. Intake Vital Signs 09/01/17 Height 5 ft 2 in 09/01/17 Weight: 165 lb 09/01/17 Body Mass Index (BMI) 30.2 09/01/17 Blood Pressure 140/70 09/01/17 Respiratory Rate 16 09/01/17 Pulse Rate 52 Intake Visit Reasons: syncope (self) Allergies hydrochlorothiazide Allergy (Verified 07/26/17 17:37) Unknown codeine Adverse Reaction (Verified 07/26/17 17:37) Unknown lisinopril Adverse Reaction (Verified 09/01/17 15:24) hyperkalemia Medications Aspirin 81 mg PO DAILY 07/26/17 [History Confirmed 09/01/17] Sennosides/Docusate Sodium [Senna-Docusate Sodium Tablet] 1 ea PO DAILY PRN #30 tab 07/27/17 [Rx Confirmed 09/01/17] amlodipine 2.5 mg tablet 2.5 mg PO QDAY tab 09/01/17 [History Confirmed 09/01/17] ascorbic acid (vitamin C) ER 1,000 mg tablet,extended release 1,000 mg PO QDAY tab 09/01/17 [History Confirmed 09/01/17] coenzyme Q10 10 mg capsule 10 mg PO QDAY cap 09/01/17 [History Confirmed 09/01/17] glucosamine HCl 1,500 mg tablet 1,500 mg PO QDAY 09/01/17 [History Confirmed 09/01/17] magnesium oxide 400 mg tablet 400 mg PO QDAY tab 09/01/17 [History Confirmed 09/01/17] multivitamin capsule 1 cap PO QDAY 09/01/17 [History Confirmed 09/01/17] omega-3 fatty acids 1,250 mg capsule 1,250 mg PO QDAY 09/01/17 [History Confirmed 09/01/17] PFSH Medical History Benign positional vertigo (Chronic) LBBB (left bundle branch block) (Chronic) HTN (hypertension) (Chronic) Surgical History H/O total hysterectomy (Resolved) History of tonsillectomy (Resolved) Hx of cholecystectomy (Resolved) left foot surgery (Resolved) Family History Mother Heart disease atrial fib CVA (cerebral vascular accident) Father CVA (cerebral vascular accident) Sister CAD (coronary artery disease) age 50 Hypertension Brother Hypertension Social History Smoking Status: Never smoker ROS Const Const: Negative for fatigue, weakness, difficulty sleeping, frequent falls, headache(s) or excessive sweating Eyes Eyes: Negative for loss of peripheral vision, transient loss of vision, blurry vision or double vision ENT ENT: Negative for headache(s), dizziness, Nosebleed/epistaxis or balance problems Cardio Chest Pain: No Edema: None Muscle aches with walking: None Resp Respiratory: Negative for SOB with activity, SOB at rest, SOB orthopnea\SOB lying down or paroxysmal nocturnal dyspnea GI GI: Negative nausea or heartburn : Negative for hematuria Musc Musc: Negative for muscle aches/ myalgia, muscle weakness, joint pain or balance problems Skin Skin: Negative non-healing lesions, unusual bruising or rash Neuro Neuro: Negative for weakness, frequent falls, blurry vision, headache(s), dizziness, lightheadedness, orthostatic symptoms or double vision Robert Hematologic/Lymphatic: Negative for easy bruising Endo Endo: Negative for fatigue, excessive sweating or increased thirst/drinking Psych Psych: Negative for anxiety or depression Allergy Allergy/Immunology: Negative for hives, Negative for rash Cardiology Exam Const Appearance: cooperative, healthy appearing and no acute distress Nutritional Appearance: well nourished Orientation: alert, oriented x3 and oriented to person Head Head: normal to inspection, atraumatic and normocephalic Nose: external nose normal Face and Sinus: face symmetric Mouth: oral mucosae normal Eyes General: appearance normal, both eyes and all related structures Eyelids: eyelids normal Conjunctivae: conjunctivae normal Pupils: PERRL and normal by confrontation EOM: EOM intact bilaterally Neck Neck: normal visual inspection and full ROM Carotids: normal carotid upstroke Chest Chest inspection: normal inspection of the chest Auscultation: Bilateral: Clear to Auscultation Cardio Palpation: normal PMI Rate: regular rate Rhythm: regular rhythm Heart sounds: S1 normal and S2 normal GI GI: normal to inspection, no hepatosplenomegaly and bowel sounds present Neuro General: alert, oriented x3, awake, CN's II-XI intact bilaterally and moves all extremities Skin Skin: no rashes or lesions noted Extremities Pulses: Normal: Right Femoral Pulse, Left Femoral Pulse, Right Dorsalis Pedis Pulse, Left Dorsalis Pedis Pulse, Right Posterior Tibial Pulse, Left Posterior Tibial Pulse, Right Radial Pulse, Left Radial Pulse Lower Extremity Edema: None: Bilateral Psych Psychological: normal affect Assessment & Plan 1. Vaso vagal episode R55 Plan 1. Vasovagal syncope: The patient appears to have abdominal pain induced and possible micturition induced vasovagal syncope while she was on the toilet at her home. However she has several risk factors for intrinsic cardiac disease which may be contributing to her tendency for syncope. She has a known left bundle branch block as well as hypertension, and is relatively bradycardic in the absence of heart rate controlling medications. For this reason I recommended that she repeat her stress test but this time with a walking component to determine her chronotropic response to exercise, ischemia, blood pressure response exercise and endurance. If this is grossly abnormal for ischemia, she may require a diagnostic coronary angiogram particularly in light of her positive family history of premature and her known left bundle branch block. In addition I recommend she undergo a 2D echo with Doppler to document her LV function, pulmonary pressures, and valvular status. Finally, I recommend that she undergo a 30 day event monitor to determine if she has any bradycardic or tachycardic arrhythmias which may have contributed to her syncopal event. In addition I recommended that she undergo a coagulation workup including factor V Leiden, Antithrombin III, lupus anticoagulant, protein C and protein S given her strong family history of procoagulant state. If the patient has a genetically related procoagulant state, I would recommend full anticoagulation therapy going forward to avoid DVT/pulmonary embolism, or acute coronary syndrome. Orders Orders: Stress Test Echo w/o Contrast Today Jose Armando Sparks MD 2. LBBB (left bundle branch block) I44.7 Plan 2. Left bundle branch block: Given her intrinsic electrical abnormalities, and positive family history of sudden cardiac in early age, she may require diagnostic coronary angiogram to further evaluate her electrical conduction issues. Orders Orders: Liver Profile Today Jose Armando Sparks MD Stress Test Echo w/o Contrast Today Jose Armando Sparks MD 3. HTN (hypertension) I10 Plan 3. Hypertension: Patient was initially tried on NARENDRA inhibitor but unfortunately due to hyperkalemia this was switched to amlodipine. Her blood pressure is fairly well-controlled. Continue amlodipine. 4. Hyperlipidemia: We will obtain a fasting lipid profile and treat her accordingly. 5. Return office in 6 months. This note was generated using a voice recognition system and there may be incorrect words, spelling or punctuation that were not noted when reviewing the office note prior to saving. Orders Orders: Lipid Profile Today Jose Armando Sparks MD Liver Profile Today Jose Armando Sparks MD Stress Test Echo w/o Contrast Today Jose Armando Sparks MD Plan Detail Other Orders Orders: Liver Profile Today R94.31 Jose Armando Sparks MD Echo Complete Today R94.31 Jose Armando Sparks MD Stress Test Echo w/o Contrast Today R94.31 Jose Armando Sparks MD Other Medications Discontinued: lisinopril Discontinued Reason: Pt no longer taking 10 mg PO DAILY Raissa Torre Follow Up +6m (Bridger) Coding Level of Care Code Off vis,new,level 4 Diagnoses Vaso vagal episode R55 LBBB (left bundle branch block) I44.7 HTN (hypertension) I10 Coding Level of Care Code Off vis,new,level 4 Diagnoses Vaso vagal episode R55 LBBB (left bundle branch block) I44.7 HTN (hypertension) I10 09/01/17 1556<Electronically signed by Jose Armando Sparks MD> Date Jose Armando Sparks MD Cosigner Signature:Date (if applicable)
--- NOTE | 2017-10-05 08:41 | CL.D_ITS ---
Patient Name: CHAS HERZOG Study Date: 10/05/2017 Performing: Jose Armando Sparks MD Ht: 62 inches 157.48 cm : 1945 Wt: 165 lbs 74.843 kg Age: 71 Gender: female BSA: 1.76 PROCEDURE(S) PERFORMED [id number]-[id number]/COR/LV CLINICAL PROFILE AND INDICATIONS Indications: New Onset Angina <= 2 months Heart Failure: None Stress/Imaging Stress Echocardiogram: Yes Result: Positive Intermediate RiskStress Echocardiogram : Positive Intermediate Risk Angina Classification Anginal Classification w/in 2 Weeks: CCS III CAD Presentations: Symptom unlikely to be ischemic. 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 DESCRIPTION OF PROCEDURE The patient arrived to the procedure lab. The risks and benefits of the procedure as well as a full d escription of our services here and current unavailability of surgical backup were fully explained to the patient and/or their significant other prior to the catheterization. The Timeout was completed, verifying the correct patient and procedure. The patient's procedural site was prepped and draped in the usual fashion. Local anesthetic was given subcutaneously to right groin region with Lidocaine 2%. Using a modified Seldinger technique, arterial access was obtained via the right femoral artery, a 4 Fr sheath was inserted Left Coronary Artery selective angiography was performed in multiple views us ing a 4 Fr. JL5 catheter. Right Coronary Artery selective angiography was then performed in multiple views using a 4 Fr. 3DRC catheter. Left Ventriculography was performed in SHEIKH projection using a 4 Fr . Pigtail catheter. LV to AO pullback pressures were then recorded.The arterial sheath was pulled and manual compression applied until hemostasis is achieved. CORONARY ANGIOGRAPHY DOMINANCE: Right Dominant LEFT HEART ASSESSMENT Left Ventricular Ejection Fraction: by LV Gram 65 % Normal LV wall motion Normal Left Ventricular systolic function LEFT MAIN: Angiographically normal LEFT ANTERIOR DECENDING ARTERY: MID LAD: Mild luminal irregularities less than 30% CIRCUMFLEX ARTERY: Angiographically normal RIGHT CORONARY ARTERY: Angiographically normal COMPLICATIONS No Complications PROCEDURE MEDICATIONS Versed 1 mg IV Oxygen: 2 L/min via nasal cannula SUMMARY OF HEMODYNAMIC DATA Time AIR REST ECG 07:18:23 ECG 07:18:46 AO 154/55 (86) SA 08:23:09 LV 183/-1, 22 08:28:40 LV 183/-4, 18 08:28:47 LVp 189/-6, 14 08:28:53 AOp 193/70 (111) 08:28:58 Signed By Jose Armando Sparks MD On 10/05/2017 08:41:17 Jose Armando Sparks MD
== END ==
PROVIDERS: Visit Provider Internal Medicine Cardiovascular Disease
DX: R55 Syncope and collapse (principal); I44.7 Left bundle-branch block, unspecified; I10 Essential (primary) hypertension; E78.5 Hyperlipidemia, unspecified; H81.10 Benign paroxysmal vertigo, unspecified ear; Z90.49 Acquired absence of other specified parts of digestive tract; Z90.710 Acquired absence of both cervix and uterus; Z79.82 Long term (current) use of aspirin; Z79.899 Other long term (current) drug therapy; R93.1 Abnormal findings on diagnostic imaging of heart and coronary circulation
CPT/HCPCS: 93458; 99152; J7040; C1769; C1894; Q9967

== ENCOUNTER → 2018-01-22 10:24 | Outpatient (CLI) | payer MEDICARE, OTHER, SELFPAY ==
[2018-01-22 11:53] LABS: Anion Gap 7 (5-15); BUN 13 mg/dL (7-18); BUN/Creat Ratio 18.4 RATIO (10-20); Calcium,Total 8.9 mg/dL (8.5-10.1); Chloride 100 mmol/L (98-107); Creatinine, Serum 0.71 mg/dL (0.55-1.02); EST Glomerular Filtration Rate 86 mL/min (>60); Est Glom Filt Rate - Afr Amer 104 mL/min (>60); Glucose 73 mg/dL (74-106); Magnesium 1.9 mg/dL (1.6-2.6); Potassium 4.7 mmol/L (3.5-5.1); Sodium Level 134 mmol/L (136-145)
== END ==
PROVIDERS: Visit Provider Nurse Practitioner Family
DX: I44.7 Left bundle-branch block, unspecified (principal); I48.0 Paroxysmal atrial fibrillation; I10 Essential (primary) hypertension; E83.42 Hypomagnesemia
CPT/HCPCS: 36415; 80048; 83735

== ENCOUNTER 2018-02-22 18:23 | Emergency (ER) | payer MEDICARE, OTHER, SELFPAY ==
[2018-02-22 18:23] VITALS: BP 162/68; PULSE 57; RESP 19; TEMP 37.2; O2SAT 97; BMI 28.3
--- NOTE | 2018-02-22 19:22 | US_ITS ---
STUDY: VENOUS DOPPLER ULTRASOUND - LEFT LOWER EXTREMITY REASON FOR EXAM: Female, 72 years old. Left leg pain TECHNIQUE: Ultrasound evaluation of the deep vein system to include hdz-scale imaging and compression was performed. Hdz-scale imaging and Doppler sonographic evaluation, including duplex spectral analysis and qualitative color flow sonography, was performed. COMPARISON: None. FINDINGS: Common Femoral Vein: Normal compression, spontaneity and augmentation. Normal color Doppler. Common Femoral Vein/Greater Saphenous Junction: Normal compression, spontaneity and augmentation. Normal color Doppler. Deep Femoral Vein: Not imaged Femoral Proximal: Normal compression. No internal echoes were seen. Femoral Middle: Normal compression, spontaneity and augmentation. Normal color Doppler. Femoral Distal: Normal compression. No internal echoes were seen. Popliteal Vein: Normal compression, spontaneity and augmentation. Normal color Doppler. Posterior Tibial Vein: Normal compression. No internal echoes. Peroneal Vein: Normal compression. No internal echoes. There is a cystic structure with some internal echoes of the left popliteal fossa measuring 2.2 x 1.7 x 0.8 cm. US/Venous Duplex Imag/Limited/Uni IMPRESSION: There is no evidence of deep venous thrombosis. Cystic structure of the posterior left knee consistent with a Natarajan's cyst. Electronically Signed: Marc Dunne MD at 20:07 EDT , Service support ,
--- NOTE | 2018-02-22 20:00 | ED.VISSUMM ---
- ER Visit Summary Date of Service: 02/22/18 Chief Complaint: Left lower leg pain History of Present Illness: The patient is a 72 F history of hypertension. Has had prior knee arthroscopy. States for 1 week she has had discomfort in her left lower leg with swelling behind her left knee. Denies any falls or trauma. No history of prior DVT. There is family history of prior clots. She herself has had no recent travel, surgery or mobilization. Pain increases with walking. She denies any swelling of the lower leg or fever. Feels fullness behind her left knee. Physical Examination: Well-appearing older female. Vital signs are stable afebrile. H EENT exam unremarkable. Lungs clear to auscultation. Heart regular rhythm. Abdomen soft and nontender. She is moving all 4 extremities. The neurovascular intact. Her left hip, anterior knee, ankle and foot are nontender neurovascular intact. No significant swelling. No redness or discoloration. No bony deformity. She is a palpable and strong left DP pulse. Left foot is neurovascularly intact with full dorsi and plantar flexion. Sensation. Cap refill. Behind her left knee there is a fullness consistent with a possible Natarajan's cyst. I do not appreciate any cords. There is no edema in the lower extremity. Right lower extremity unremarkable. Neurologically she is awake and alert. Test Results: Noninvasive study of the left lower extremity shows no DVT but a fluid collection behind the left knee in the popliteal space consistent with a Natarajan's cyst. This was discussed with the desktop support technician. Emergency Department Course and Treatment: Patient be discharged home to follow-up with her orthopedic surgeon. Treatment Plan: Ice and elevate. I will asked the patient if she wants any pain medication. Disposition: Discharge Impression: Acute left posterior knee pain secondary to a popliteal Natarajan's cyst This note was generated with [employer] dictation software. It may contain incorrect words, spelling, and punctuation that were not noted in review of the chart prior to signing ED Disposition - Plan for ED Patient: Chief Complaint: General Illness Referrals: Faheem Sanchez [Primary Care Provider] -
[2018-02-22 20:03] VITALS: BP 158/70; PULSE 77; RESP 16; O2SAT 99
--- NOTE | 2018-02-22 20:03 | ED.DCSUM_ITS ---
- ER Visit Summary Date of Service: 02/22/18 Chief Complaint: Left lower leg pain History of Present Illness: The patient is a 72 F history of hypertension. Has had prior knee arthroscopy. States for 1 week she has had discomfort in her left lower leg with swelling behind her left knee. Denies any falls or trauma. No history of prior DVT. There is family history of prior clots. She herself has had no recent travel, surgery or mobilization. Pain increases with walking. She denies any swelling of the lower leg or fever. Feels fullness behind her left knee. Physical Examination: Well-appearing older female. Vital signs are stable afebrile. H EENT exam unremarkable. Lungs clear to auscultation. Heart regular rhythm. Abdomen soft and nontender. She is moving all 4 extremities. The neurovascular intact. Her left hip, anterior knee, ankle and foot are nontender neurovascular intact. No significant swelling. No redness or discoloration. No bony deformity. She is a palpable and strong left DP pulse. Left foot is neurovascularly intact with full dorsi and plantar flexion. Sensation. Cap refill. Behind her left knee there is a fullness consistent with a possible Natarajan's cyst. I do not appreciate any cords. There is no edema in the lower extremity. Right lower extremity unremarkable. Neurologically she is awake and alert. Test Results: Noninvasive study of the left lower extremity shows no DVT but a fluid collection behind the left knee in the popliteal space consistent with a Natarajan's cyst. This was discussed with the ear mold laboratory technician. Emergency Department Course and Treatment: Patient be discharged home to follow- up with her orthopedic surgeon. Treatment Plan: Ice and elevate. I will asked the patient if she wants any pain medication. Disposition: Discharge Impression: Acute left posterior knee pain secondary to a popliteal Natarajan's cyst This note was generated with [employer] dictation software. It may contain incorrect words, spelling, and punctuation that were not noted in review of the chart prior to signing ED Disposition - Plan for ED Patient: Chief Complaint: General Illness Referrals: Faheem Sanchez [Primary Care Provider] -
--- NOTE | 2018-02-22 20:04 | ED.DEP ---
ED Disposition - Plan for ED Patient: Disposition: Home or Assisted Living Chief Complaint: General Illness Instructions: ED Cyst Natarajan Prescriptions: Hydrocodone Bitart/Apap 5-325 [[place] 5MG-325MG] 1 - 2 tab PO Q4H PRN PRN #20 tab PRN Reason: Pain Referrals: Yong Watkins DO [STAFF PHYSICIAN] - As soon as possible Additional Instructions: Call follow-up with an orthopedic physician of your choice. You do not have a DVT. You have a Natarajan's cyst behind her left knee. [place] for pain as needed.
--- NOTE | 2018-02-22 20:10 | DCINST.ED_ITS ---
ED Disposition - Plan for ED Patient: Disposition: Home or Assisted Living Chief Complaint: General Illness Instructions: ED Cyst Natarajan Prescriptions: Hydrocodone Bitart/Apap 5-325 [Patrick 5MG-325MG] 1 - 2 tab PO Q4H PRN PRN #20 tab PRN Reason: Pain Referrals: Yong Watkins DO [STAFF PHYSICIAN] - As soon as possible Additional Instructions: Call follow-up with an orthopedic physician of your choice. You do not have a DVT. You have a Natarajan's cyst behind her left knee. Patrick for pain as needed.
== END 2018-02-22 20:24 | disposition home or self-care (01) ==
PROVIDERS: Emergency Provider Emergency Medicine
DX: M71.22 Synovial cyst of popliteal space [Baker], left knee (principal); M25.562 Pain in left knee; I10 Essential (primary) hypertension; Z79.82 Long term (current) use of aspirin; Z79.899 Other long term (current) drug therapy; M79.89 Other specified soft tissue disorders
CPT/HCPCS: 93971; 99282

== ENCOUNTER → 2018-04-09 08:02 | Outpatient (CLI) | payer MEDICARE, OTHER, SELFPAY ==
[2018-04-09 08:38] LABS: Absolute Lymphocyte Count 1.33 X10^3/ul (0.83-4.51); Absolute Neutrophil Count 3.5 X10^3/uL (2.0-7.7); Basophil# 0.02 X10^3/uL; Basophil% 0.4 % (0-1); Eosinophil# 0.15 X10^3/uL; Eosinophils% 2.8 % (0-5); Hematocrit 40.8 % (37-47); Hemoglobin 13.7 g/dl (12.0-15.0); Lymphocyte # 1.33 X10^3/ul (4.0); Lymphocyte % 24.7 % (19-41); Mean Corp Hgb Conc 33.6 g/gl (32-36); Mean Corpuscular Hgb 31.8 pg (27.0-32.0); Mean Corpuscular Volume 94.7 fL (81-99); Mean Platelet Vol. 9.4 fl (6.2-12.0); Monocyte% 7.4 % (0-10); Neutrophil # 3.47 X10^3/uL (2.7-7.7); Neutrophil % 64.5 % (47-70); Platelet Count 197 K/mm3 (150-450); RBC Distribution Width CV 12.9 % (11.6-14.6); RBC Distribution Width SD 43.1 fl (35.1-43.9); Red Blood Count 4.31 M/mm3 (4.2-5.4); White Blood Count 5.4 K/mm3 (4.4-11.0)
[2018-04-09 08:43] LABS: POSITIVE COUNT NO; POSITIVE DIFFERENTIAL NO; POSITIVE MORPHOLOGY NO
[2018-04-09 09:13] LABS: Anion Gap 6 (5-15); BUN 11 mg/dL (7-18); BUN/Creat Ratio 15.9 RATIO (10-20); Calcium,Total 9.1 mg/dL (8.5-10.1); Chloride 102 mmol/L (98-107); Creatinine, Serum 0.69 mg/dL (0.55-1.02); EST Glomerular Filtration Rate 88 mL/min (>60); Est Glom Filt Rate - Afr Amer 107 mL/min (>60); Glucose 90 mg/dL (74-106); Magnesium 1.9 mg/dL (1.6-2.6); Potassium 4.7 mmol/L (3.5-5.1); Sodium Level 137 mmol/L (136-145); T4 Total, Thyroxin 10.2 ug/dL (4.8-13.9); Thyroid Stim Hormone (TSH) 3.55 uIU/mL (0.358-3.74)
== END ==
PROVIDERS: Referring Provider Internal Medicine Cardiovascular Disease; Visit Provider Internal Medicine Cardiovascular Disease
DX: I48.0 Paroxysmal atrial fibrillation (principal)
CPT/HCPCS: 36415; 80048; 83735; 84436; 84443; 85025

== ENCOUNTER → 2018-10-08 | Outpatient (CLI) | payer MEDICARE, OTHER, SELFPAY ==
[2018-04-19 08:34] VITALS: BMI 28.8
[2018-10-08 16:24] LABS: Hematocrit 36.9 % (37-47); Hemoglobin 12.4 g/dl (12.0-15.0); Mean Corp Hgb Conc 33.6 g/gl (32-36); Mean Corpuscular Hgb 31.7 pg (27.0-32.0); Mean Corpuscular Volume 94.4 fL (81-99); Mean Platelet Vol. 9.3 fl (6.2-12.0); Platelet Count 240 K/mm3 (150-450); RBC Distribution Width CV 13.1 % (11.6-14.6); Red Blood Count 3.91 M/mm3 (4.2-5.4); White Blood Count 5.8 K/mm3 (4.4-11.0)
[2018-10-08 16:29] LABS: Anion Gap 7 (5-15); BUN 13 mg/dL (7-18); BUN/Creat Ratio 15.6 RATIO (10-20); Calcium,Total 8.9 mg/dL (8.5-10.1); Chloride 102 mmol/L (98-107); Creatinine, Serum 0.84 mg/dL (0.55-1.02); EST Glomerular Filtration Rate 71 mL/min (>60); Est Glom Filt Rate - Afr Amer 86 mL/min (>60); Glucose 190 mg/dL (74-106); Potassium 3.9 mmol/L (3.5-5.1); Scan Indicated on CBC? Y/N NO; Sodium Level 138 mmol/L (136-145)
== END | disposition home or self-care (01) ==
LOC: LAB 15:46
PROVIDERS: Referring Provider Internal Medicine Cardiovascular Disease; Visit Provider Internal Medicine Cardiovascular Disease
DX: R53.1 Weakness (principal); R00.2 Palpitations
CPT/HCPCS: 36415; 80048; 85027

== ENCOUNTER → 2018-11-02 | Outpatient (CLI) | payer MEDICARE, OTHER, SELFPAY ==
[2018-10-11 14:41] VITALS: BMI 28.1
[2018-11-02 13:13] LABS: Anion Gap 8 (5-15); BUN 10 mg/dL (7-18); BUN/Creat Ratio 16.1 RATIO (10-20); Calcium,Total 9.1 mg/dL (8.5-10.1); Chloride 101 mmol/L (98-107); Creatinine, Serum 0.62 mg/dL (0.55-1.02); EST Glomerular Filtration Rate 99 mL/min (>60); Est Glom Filt Rate - Afr Amer 120 mL/min (>60); Glucose 91 mg/dL (74-106); Potassium 4.1 mmol/L (3.5-5.1); Sodium Level 137 mmol/L (136-145)
== END | disposition home or self-care (01) ==
PROVIDERS: Referring Provider Internal Medicine Cardiovascular Disease; Visit Provider Internal Medicine Cardiovascular Disease
DX: I10 Essential (primary) hypertension (principal); Z86.39 Personal history of other endocrine, nutritional and metabolic disease
CPT/HCPCS: 36415; 80048

== ENCOUNTER 2020-11-21 18:15 | Observation (INO) | payer MEDICARE, OTHER, SELFPAY ==
[2018-10-11 14:41] VITALS: BMI 28.1
[2020-11-21 18:16] VITALS: BP 112/60; PULSE 53; PULSE 61; RESP 16; RESP 23; TEMP 36.1; O2SAT 97; O2SAT 98; BMI 30.4
--- NOTE | 2020-11-21 18:18 | CT_ITS ---
STUDY: CTA CHEST AND CT ABDOMEN/PELVIS WITH CONTRAST REASON FOR EXAM: Female, 74 years old. chest/back pain- concern for dissection RADIATION DOSAGE (If Supplied By Facility): CTDIvol = ( 15.80 ) mGy, DLP = ( 1023.41 ) mGycm TECHNIQUE: The examination was performed with the intravenous administration of IV 100mL Isovue-370. Post-processing of the angiographic images was performed, with multiplanar reformation and 3D reconstruction. Individualized dose optimization techniques were used for this CT. COMPARISON: No relevant priors. FINDINGS: CTA Chest Normal enhancement of the main pulmonary artery and right and left pulmonary arteries. Normal enhancement of the bilateral peripheral pulmonary arteries. There is no demonstrated pulmonary embolism. Normal thoracic aorta and visualized great vessels. There is no demonstrated aortic dissection. Normal heart and pericardium. Normal mediastinum. Normal hilar regions. Normal visualized trachea and bronchi. The lungs are well expanded. Left lower lobe granulomatous calcification is present. Normal pleura. Normal chest wall structures. Normal osseous structures. Normal visualized upper abdomen. CT Abdomen T Pelvis The visualized lung bases are unremarkable. The visualized portions of the heart are within normal limits. Normal liver. There are surgical clips in the gallbladder fossa consistent with a prior cholecystectomy. Normal spleen. Normal pancreas. Normal bilateral adrenal glands. Normal right kidney. Normal left kidney. Normal visualized stomach. Normal small intestine. There are multiple colonic diverticula consistent with diverticulosis. There is non-visualization of the appendix. Normal abdominal aorta. Normal inferior vena cava. Normal retroperitoneum. Normal urinary bladder. There is absence of the uterus consistent with a prior hysterectomy. Normal abdominal wall. There are diffuse degenerative changes of the visualized lumbar spine. CT/CTA Chst, Abd, Pel W and/or WO IMPRESSION: No evidence of pulmonary embolism or aortic dissection. No evidence of acute cardiopulmonary or intra-abdominal process. Electronically Signed: Pedrito Bullard DO at 19:03 EDT , Service support ,
--- NOTE | 2020-11-21 18:21 | EKG12_ITS ---
Test Reason : CP Blood Pressure : / mmHG Vent. Rate : 050 BPM Atrial Rate : 050 BPM P-R Int : 212 ms QRS Dur : 166 ms QT Int : 526 ms P-R-T Axes : 043 -35 120 degrees QTc Int : 479 ms Sinus bradycardia with 1st degree A-V block with Premature atrial complexes Left axis deviation Left bundle branch block Abnormal ECG Confirmed by KATHERIN PAYNE, MARY ([id number]), purchase request editor TONYA MILLS ([id number]) on 11/23/2020 12:57:05 PM Referred By: LISA Confirmed By:MARY PANDEY MD
--- NOTE | 2020-11-21 18:22 | ED.VIS.CHEST ---
HPI History of Present Illness Chief Complaint: Chest Pain Informant: patient Onset/Context/Timing Onset: Today Activity at onset: sudden Narrative Narrative: Patient is a 74-year-old female with history of left bundle branch block, hypertension, proximal atrial fibrillation and syncope presenting after an episode of syncope and then as severe chest and back pain. Patient states she was leaving the restroom after having a bowel movement when she passed out. When she came to she knows that she had pain in her chest and rated to her left arm as well as pain in her lower back. She states she is very sweaty and felt lightheaded. Patient states her symptoms started to subside in route here. Per report patient was unconscious for about 10 minutes. Patient's telecommunications repairer is Dr. Falcon. She most recently saw him last week. She has been having ongoing bradycardia with heart rates as low as the 40s so a ZIO was placed. [facility] Medical History Abnormal electrocardiogram Abnormal stress echocardiogram Afib Benign positional vertigo HTN (hypertension) LBBB (left bundle branch block) Palpitations Vaso vagal episode Weakness Home Medications aspirin 81 mg PO DAILY 07/26/17 [History Last Taken 10/05/17] ascorbic acid (vitamin C) 1,000 mg tablet,extended release 1,000 mg PO QDAY tab 09/01/17 [History Last Taken Unknown] coenzyme Q10 10 mg capsule 10 mg PO QDAY cap 09/01/17 [History Last Taken Unknown] glucosamine HCl 1,500 mg tablet 1,500 mg PO QDAY 09/01/17 [History Last Taken Unknown] omega-3 fatty acids 1,250 mg capsule 1,250 mg PO QDAY 09/01/17 [History Last Taken Unknown] amlodipine 10 mg tablet 5 mg PO DAILY #45 tab 10/01/18 [Rx Last Taken Unknown] atorvastatin 20 mg tablet 20 mg PO QHS 10/01/18 [History Last Taken Unknown] losartan 50 mg tablet 50 mg PO DAILY #90 tab 02/04/19 [Rx Last Taken Unknown] furosemide 20 mg tablet 20 mg PO .COMPLEX #120 tab 08/05/19 [Rx Last Taken Unknown] Allergy/AdvReac Type Severity Reaction Status Date / Time hydrochlorothiazide Allergy Unknown Verified 11/21/20 18:20 codeine AdvReac Unknown Verified 11/21/20 18:20 lisinopril AdvReac hyperkalemi Verified 11/21/20 18:20 a Family History Mother Heart disease atrial fib CVA (cerebral vascular accident) Father CVA (cerebral vascular accident) Sister CAD (coronary artery disease) age 50 Hypertension Brother Hypertension Surgical History H/O total hysterectomy History of left heart catheterization (10/05/17) History of tonsillectomy Hx of cholecystectomy left foot surgery Social History Smoking Status: Never smoker ROS ROS ED Constitutional Constitutional ED: Reports sweats; Denies chills or fever(s) Eyes Eyes: Denies blurry vision or change in vision ENT ENT ED: Denies ear pain or sore throat Cardiovascular Cardiovascular: Reports chest pain Respiratory/Chest Respiratory/Chest: Denies cough or dyspnea Gastrointestinal Gastrointestinal: Denies abdominal pain, nausea or vomiting Genitourinary Genitourinary ED: Denies dysuria Musculoskeletal Musculoskeletal: Reports back pain; Denies arthralgias or myalgias Neurologic Neurologic: Denies headache(s) or weakness Psychiatric Psychiatric: Denies anxiety or depression EXAM Physical Exam Const Vital Signs: 11/21/20 18:16 11/21/20 18:23 11/21/20 18:51 Temperature 97 F L Temperature Source Temporal Pulse Rate 53 L Respiratory Rate 16 Respiratory Effort Normal Non-Labored Respiratory Pattern Normal Blood Pressure 112/60 Blood Pressure Mean 77 Pulse Ox 98 Oxygen Delivery Method Room Air Nasal Cannula Oxygen Flow Rate (L/min) 2 11/21/20 20:43 Temperature 97.9 F Temperature Source Temporal Pulse Rate 56 L Respiratory Rate 19 H Respiratory Effort Respiratory Pattern Blood Pressure 116/56 L Blood Pressure Mean 76 Pulse Ox 100 Oxygen Delivery Method Room Air Oxygen Flow Rate (L/min) Positive well developed General Appearance ED: well developed, pallor and other Pale, diaphoretic HEENT normocephalic and atraumatic Eyes PERRL General Eye ED: Negative for pale conjunctiva Neck supple and no JVD Chest Wall inspection of chest normal and palpation of chest normal Resp normal respiratory effort Cardio regular rhythm Rate: bradycardia GI normal to inspection, nondistended, normoactive bowel sounds and no masses Extremity normal to inspection General Extremety ED: Negative for edema General Extremity: Negative for edema Neuro oriented x3 Sensorium / Orientation: awake and alert Psych mental status grossly normal Skin no wounds General Skin Exam: pallor MDM MDM MDM Narrative Medical decision making narrative: Patient evaluated after a syncopal episode at home. On arrival patient is pale, diaphoretic and bradycardic. She is given IV fluids in the ER as her blood pressure is soft. Given that she did she was complaining of associated chest and back pain I did obtain a dissection study which was negative. Her creatinine is elevated 1.34. Her chart review shows that her baseline is closer to 0.6-0.7. Patient is on Lasix. I question she could be over diuresed and that is what caused her PARRISH as well as her syncope. Patient will be brought in for further cardiac monitoring for her syncope and observation as well as hydration. She is agreeable with this plan of care. Lab Data Labs: Laboratory Results - last 24 hr 11/21/20 11/21/20 11/21/20 18:25 18:25 19:10 WBC 7.3 RBC 3.45 L Hgb 10.8 L Hct 32.4 L MCV 93.9 MCH 31.3 MCHC 33.3 RDW Std Deviation 45.3 H RDW Coeff of Diogo 13.2 Plt Count 206 MPV 9.1 Immature Gran % (Auto) 0.400 Neut % (Auto) 70.2 H Lymph % (Auto) 19.3 [place] % (Auto) 8.3 Eos % (Auto) 1.5 Baso % (Auto) 0.3 Absolute Neuts (auto) 5.2 Absolute Lymphs (auto) 1.42 Nucleated RBC % 0 Sodium 136 Potassium 3.2 L Chloride 101 Carbon Dioxide 27.0 Anion Gap 8 BUN 23 H Creatinine 1.34 H Estim Creat Clear Calc 30.84 Est GFR (MDRD) Af Amer 49 L Est GFR (MDRD) Non-Af 41 L BUN/Creatinine Ratio 17.2 Glucose 175 H Lactic Acid 1.8 Calcium 8.6 Troponin I High Sens 11.6 Radiography Diagnostic Testing: Radiology Impression Chest/Abdomen/Pelvis CTA 11/21/20 18:18 IMPRESSION: No evidence of pulmonary embolism or aortic dissection. No evidence of acute cardiopulmonary or intra-abdominal process. Electronically Signed: Pedrito BullardDO at 19:03 EDT , Service support , Rhythm Strip Rhythm Strip: Sinus bradycardia Rate: 50 Ectopy: None EKG Initial EKG: Attestation: I personally reviewed and interpreted this EKG as follows: Interpretation: Sinus Bradycardia Comments: Sinus bradycardia at a rate of 50 with first-degree AV block. CT interval 212 QRS 166 QTc 479 Left axis deviation Left bundle branch block No acute ischemic changes Discharge Plan Triage Chief Complaint: Chest Pain ED Provider: Elizabeth Maddox Dx/Rx/DC Orders Clinical Impression: Syncope, Chest pain, Elevated serum creatinine Primary Care Provider: Balaji Sanchez Disposition Disposition: Acute Care Hospital [facility]
[2020-11-21 18:41] LABS: Absolute Lymphocyte Count 1.42 X10^3/uL (0.83-4.51); Absolute Neutrophil Count 5.2 X10^3/uL (2.0-7.7); Basophil# 0.02 X10^3/uL; Basophil% 0.3 % (0-1); Eosinophil# 0.11 X10^3/uL; Eosinophils% 1.5 % (0-5); Hematocrit 32.4 % (37-47); Hemoglobin 10.8 g/dL (12.0-15.0); Lymphocyte # 1.42 X10^3/ul (0.83-4.51); Lymphocyte % 19.3 % (19-41); Mean Corp Hgb Conc 33.3 g/dL (32-36); Mean Corpuscular Hgb 31.3 pg (27.0-32.0); Mean Corpuscular Volume 93.9 fL (81-99); Mean Platelet Vol. 9.1 fl (6.2-12.0); Monocyte# 0.61 X10^3/uL; Monocyte% 8.3 % (0-10); NRBC Flagged by Analyzer 0 % (0-5); Neutrophil # 5.15 X10^3/uL (2.7-7.7); Neutrophil % 70.2 % (47-70); Platelet Count 206 K/mm3 (150-450); RBC Distribution Width CV 13.2 % (11.6-14.6); RBC Distribution Width SD 45.3 fl (35.1-43.9); Red Blood Count 3.45 M/mm3 (4.2-5.4); White Blood Count 7.3 K/mm3 (4.4-11.0)
[2020-11-21 18:50] LABS: Anion Gap 8 (5-15); BUN 23 mg/dL (7-18); BUN/Creat Ratio 17.2 RATIO (10-20); Calcium,Total 8.6 mg/dL (8.5-10.1); Chloride 101 mmol/L (98-107); Creatinine, Serum 1.34 mg/dL (0.55-1.02); EST Glomerular Filtration Rate 41 mL/min (>60); Est Glom Filt Rate - Afr Amer 49 mL/min (>60); Estimated Creatinine Clearance 30.84 ml/min; Glucose 175 mg/dL (74-106); Potassium 3.2 mmol/L (3.5-5.1); Sodium Level 136 mmol/L (136-145); Troponin-I HS 11.6 pg/mL (3.0-53.7)
[2020-11-21 19:45] LABS: Lactic Acid 1.8 mmol/L (0.4-1.9)
--- NOTE | 2020-11-21 20:38 | PCM.HP.STD ---
HPI - General General Date of Admission: 11/21/20 Date of Service: 11/21/20 Chief Complaint: syncope HPI Narrative CHAS HERZOG, is a 74 F who presents with a syncope and chest pain. Around 1800, patient went to their truck where they are unloading some items and state that she was not feeling well and then passed out. Patient was out only for 45seconds woke up briefly and then passed out again twice. No evidence of any tonic-clonic activity. Prior to that, patient had not been feeling well and did have a bowel movement she was just coming back from the bathroom. 1 hour earlier, patient had eaten but had not eaten all day. Patient noted feeling congested and having a cough for several days prior. After the syncopal events, patient did have chest pain was also in her shoulders and down her arms. Did resolve spontaneously and is not currently having any symptoms at this time. Patient does not have a history of passing out. [facility] Medical History Abnormal electrocardiogram Abnormal stress echocardiogram Afib Benign positional vertigo HTN (hypertension) LBBB (left bundle branch block) Palpitations Vaso vagal episode Weakness Home Medications aspirin 81 mg PO DAILY 07/26/17 [History Last Taken 10/05/17] ascorbic acid (vitamin C) 1,000 mg tablet,extended release 1,000 mg PO QDAY tab 09/01/17 [History Last Taken Unknown] coenzyme Q10 10 mg capsule 10 mg PO QDAY cap 09/01/17 [History Last Taken Unknown] glucosamine HCl 1,500 mg tablet 1,500 mg PO QDAY 09/01/17 [History Last Taken Unknown] omega-3 fatty acids 1,250 mg capsule 1,250 mg PO QDAY 09/01/17 [History Last Taken Unknown] amlodipine 10 mg tablet 5 mg PO DAILY #45 tab 10/01/18 [Rx Last Taken Unknown] atorvastatin 20 mg tablet 20 mg PO QHS 10/01/18 [History Last Taken Unknown] losartan 50 mg tablet 50 mg PO DAILY #90 tab 02/04/19 [Rx Last Taken Unknown] furosemide 20 mg tablet 20 mg PO .COMPLEX #120 tab 08/05/19 [Rx Last Taken Unknown] Allergy/AdvReac Type Severity Reaction Status Date / Time hydrochlorothiazide Allergy Unknown Verified 11/21/20 18:20 codeine AdvReac Unknown Verified 11/21/20 18:20 lisinopril AdvReac hyperkalemi Verified 11/21/20 18:20 a Family History Mother Heart disease atrial fib CVA (cerebral vascular accident) Father CVA (cerebral vascular accident) Sister CAD (coronary artery disease) age 50 Hypertension Brother Hypertension Surgical History H/O total hysterectomy History of left heart catheterization (10/05/17) History of tonsillectomy Hx of cholecystectomy left foot surgery Social History Smoking Status: Never smoker ROS ROS Narrative No shortness of breath. No nausea no vomiting. No lower extremity edema. All review of systems were negative except as mentioned above in the history of present illness and the other review of systems. Vital Signs Vital Signs Vital Signs: 11/21/20 18:16 11/21/20 18:23 11/21/20 18:51 Temperature 36.1 C L Temperature Source Temporal Pulse Rate 53 L Respiratory Rate 16 Respiratory Effort Normal Non-Labored Respiratory Pattern Normal Blood Pressure 112/60 Blood Pressure Mean 77 Pulse Ox 98 Oxygen Delivery Method Room Air Nasal Cannula Oxygen Flow Rate (L/min) 2 Weight Weight: 80.5 kg Body Mass Index (BMI) 30.4 Physical Exam Const alert HEENT normocephalic and head/scalp atraumatic Neck no lymphadenopathy Resp normal respiratory effort, no use of accessory muscles and clear to auscultation bilaterally Cardio regular rate, regular rhythm, S1 normal heart sound and S2 normal heart sound GI normal to inspection, nondistended, normoactive bowel sounds, non-tender and non-distended Extremity normal to inspection and no clubbing, cyanosis or edema Skin no rashes or lesions noted and no wounds Neuro Sensorium / Orientation: awake and alert Results Lab / Micro Data Attestation: I reviewed the patient's lab results. Result Diagrams: 11/21/20 18:25 11/21/20 18:25 Labs: Laboratory Results - last 24 hr 11/21/20 11/21/20 11/21/20 18:25 18:25 19:10 WBC 7.3 RBC 3.45 L Hgb 10.8 L Hct 32.4 L MCV 93.9 MCH 31.3 MCHC 33.3 RDW Std Deviation 45.3 H RDW Coeff of Diogo 13.2 Plt Count 206 MPV 9.1 Immature Gran % (Auto) 0.400 Neut % (Auto) 70.2 H Lymph % (Auto) 19.3 [place] % (Auto) 8.3 Eos % (Auto) 1.5 Baso % (Auto) 0.3 Absolute Neuts (auto) 5.2 Absolute Lymphs (auto) 1.42 Nucleated RBC % 0 Sodium 136 Potassium 3.2 L Chloride 101 Carbon Dioxide 27.0 Anion Gap 8 BUN 23 H Creatinine 1.34 H Estim Creat Clear Calc 30.84 Est GFR (MDRD) Af Amer 49 L Est GFR (MDRD) Non-Af 41 L BUN/Creatinine Ratio 17.2 Glucose 175 H Lactic Acid 1.8 Calcium 8.6 Troponin I High Sens 11.6 EKG Initial EKG: Attestation: I personally reviewed and interpreted this EKG as follows: Prior EKG tracings: available for review EKG Rhythm Intrepretation: Sinus Bradycardia Interpretation: LBBB Radiology Impression Chest/Abdomen/Pelvis CTA 11/21/20 18:18 IMPRESSION: No evidence of pulmonary embolism or aortic dissection. No evidence of acute cardiopulmonary or intra-abdominal process. Electronically Signed: Pedrito Bullard DO at 19:03 EDT , Service support , Assessment & Plan Assessment/Plan (1) Syncope: QUALIFIERS: Syncope type: unspecified Qualified Code(s): R55 - Syncope and collapse (2) Chest pain: QUALIFIERS: Chest pain type: unspecified Qualified Code(s): R07.9 - Chest pain, unspecified PLAN: 1. Syncope I suspect vasovagal given the fact that patient had not eaten all day up until about an hour prior to this, was not feeling well and just had a bowel movement but also may be dehydrated. Plan: IV fluids, interrogate her heart monitor to ensure there is no arrhythmia (doubtful). Encouraged patient to avoid going that long without eating in the future. 2. Chest pain Atypical JIN score of 4 Plan: Treadmill nuclear stress test on the 3. Hypokalemia Plan: Replace. Check magnesium level. 4. Paroxysmal atrial fibrillation Currently sinus bradycardia 5. VTE prophylaxis: Not indicated as patient is low risk given observation status 6. Health maintenance: Patient has been vaccinated for COVID-19. Charges/Coding Visit Charges OBSV E&M: 61527 Initial observation care L3
[2020-11-21 20:43] VITALS: BP 116/56; PULSE 56; RESP 19; TEMP 36.6; O2SAT 100
[2020-11-21 21:17] LABS: Troponin-I HS 13.7 pg/mL (3.0-53.7)
[2020-11-21 21:28] VITALS: PULSE 53
[2020-11-21 21:30] VITALS: BP 131/45; PULSE 60; RESP 18; TEMP 36.7; O2SAT 98; BMI 29.5
--- NOTE | 2020-11-21 22:14 | EKG12_ITS ---
Test Reason : CP ADMIT Blood Pressure : / mmHG Vent. Rate : 053 BPM Atrial Rate : 053 BPM P-R Int : 216 ms QRS Dur : 156 ms QT Int : 530 ms P-R-T Axes : 076 -39 115 degrees QTc Int : 497 ms Sinus bradycardia with 1st degree A-V block Left axis deviation Left bundle branch block Abnormal ECG Confirmed by TAINA PAYNE, JOSÉ MANUEL ([id number]), photo editor TONYA MILLS ([id number]) on 11/23/2020 11:35:03 AM Referred By: DR SAUNDERS Confirmed By:JOSÉ MANUEL HER MD
[2020-11-21] MEDS: 0.9% Saline Lock 10 ML Syringe IV (22:38)
[2020-11-21] MEDS: Aspirin 81 MG TAB.CHEW PO (22:38)
[2020-11-21] MEDS: KCL 20MEQ in 0.9% NS 20 MEQ/1,000 ML IV.SOLN. 150 MEQ IV (22:38)
[2020-11-21] MEDS: Atorvastatin Calcium 20 MG Tablet PO (22:38)
[2020-11-22] VITALS (8 sets, daily range): BP systolic 140–149; BP diastolic 42–68; PULSE 50–75; RESP 16–18; TEMP 36.6–36.8; O2SAT 98–100
[2020-11-22] MEDS: KCL 20MEQ in 0.9% NS 20 MEQ/1,000 ML IV.SOLN. 150 MEQ IV (05:20)
[2020-11-22 05:42] LABS: Anion Gap 6 (5-15); BUN 16 mg/dL (7-18); BUN/Creat Ratio 21.1 RATIO (10-20); Calcium,Total 8.3 mg/dL (8.5-10.1); Chloride 107 mmol/L (98-107); Creatinine, Serum 0.76 mg/dL (0.55-1.02); EST Glomerular Filtration Rate 79 mL/min (>60); Est Glom Filt Rate - Afr Amer 95 mL/min (>60); Estimated Creatinine Clearance 41.33 ml/min; Glucose 99 mg/dL (74-106); Magnesium 1.9 mg/dL (1.6-2.6); Potassium 3.9 mmol/L (3.5-5.1); Sodium Level 138 mmol/L (136-145)
--- NOTE | 2020-11-22 05:55 | EKG12_ITS ---
Test Reason : AM EKG Blood Pressure : / mmHG Vent. Rate : 054 BPM Atrial Rate : 054 BPM P-R Int : 214 ms QRS Dur : 148 ms QT Int : 486 ms P-R-T Axes : 074 -46 118 degrees QTc Int : 460 ms Sinus bradycardia with 1st degree A-V block Left axis deviation Left bundle branch block Abnormal ECG Confirmed by TAINA PAYNE, JOSÉ MANUEL ([id number]), editor dictionary TONYA MILLS ([id number]) on 11/23/2020 11:35:15 AM Referred By: NICKY Confirmed By:JOSÉ MANUEL HER MD
[2020-11-22] MEDS: Aspirin 81 MG TAB.CHEW PO (06:22)
[2020-11-22] MEDS: Losartan Potassium 50 MG Tablet PO (06:23)
[2020-11-22 08:18] LABS: Absolute Neutrophil Count 5.8 X10^3/uL (2.0-7.7); Basophil# 0.02 X10^3/uL; Basophil% 0.3 % (0-1); Eosinophil# 0.09 X10^3/uL; Eosinophils% 1.2 % (0-5); Hematocrit 33.7 % (37-47); Hemoglobin 11.1 g/dL (12.0-15.0); Mean Corp Hgb Conc 32.9 g/dL (32-36); Mean Corpuscular Hgb 31.6 pg (27.0-32.0); Mean Platelet Vol. 9.6 fl (6.2-12.0); Monocyte# 0.61 X10^3/uL; Monocyte% 8.2 % (0-10); NRBC Flagged by Analyzer 0 % (0-5); Neutrophil # 5.82 X10^3/uL (2.7-7.7); Neutrophil % 77.9 % (47-70); Platelet Count 179 K/mm3 (150-450); RBC Distribution Width CV 13.2 % (11.6-14.6); RBC Distribution Width SD 46.7 fl (35.1-43.9); Red Blood Count 3.51 M/mm3 (4.2-5.4); White Blood Count 7.5 K/mm3 (4.4-11.0)
[2020-11-22] MEDS: 0.9% Saline Lock 10 ML Syringe IV ×2 (08:50→11:33)
--- NOTE | 2020-11-22 10:35 | PCM.DC ---
Discharge Instructions Diet Discharge Diet: No restrictions Activity Discharge Activity: Return to Normal Activity Follow Up Care Test Results: Test results from this visit will be discussed in further detail at your follow-up appointment, if applicable. Discharge Plan Admission Admit Date/Time: 11/21/20 20:38 Primary Reason for Your Visit: Chest pain and syncope Attending Provider: Kelly Flor Primary Care Provider: Balaji Sanchez Consulting Providers: Bharath Hobson Instructions Patient Instructions: Diagnosing Syncope, ED Chest Pain, Noncardiac Discharge Orders/Prescriptions Prescriptions: New Eliquis 5 mg tablet 5 mg PO BID Qty: 60 RF: 0 Continued coenzyme Q10 [Co Q-10] 10 mg capsule 10 mg PO QDAY RF: 0 omega-3 fatty acids 1,250 mg capsule 1,250 mg capsule 1,250 mg PO QDAY RF: 0 ascorbic acid (vitamin C) [Vitamin C With Cinthya Hips] 1,000 mg tablet extended release 1,000 mg PO QDAY RF: 0 glucosamine HCl 1,500 mg tablet 1,500 mg PO QDAY RF: 0 aspirin 81 MG tablet,chewable 81 mg PO QHS RF: 0 atorvastatin 20 mg tablet 20 mg PO QHS RF: 0 losartan 50 mg tablet 50 mg PO DAILY Qty: 90 RF: 3 furosemide 20 mg tablet 20 mg PO .COMPLEX Qty: 120 RF: 3 Referrals / Follow Up: Balaji Sanchez MD [Primary Care Provider] - Within 2 Weeks Disposition Disposition (needs filled in before D/C Order can be placed): Home, Self Care
--- NOTE | 2020-11-22 11:18 | NURSING ---
This nurse spoke with [employer] and was informed the heart monitor she is wearing does not transmit data until it is returned to the company.
[2020-11-22] MEDS: Acetaminophen 325 MG Tablet 650 MG PO (13:19)
--- NOTE | 2020-11-22 14:26 | STRESSREP_ITS ---
Stress Test Report Lexiscan myocardial perfusion stress test. Indication; 74-year-old female presented with syncope and chest pain evidently the patient went over to the truck and she passed out for 45 seconds Patient had history of left bundle branch block, hypertension, history of benign positional vertigo, paroxysmal atrial fibrillation and symptoms of palpitation and syncope.. Stress protocol: Resting EKG demonstrates. Normal sinus rhythm. Left bundle branch block 0.4 mg of regadenoson was infused per usual protocol followed by rapid intravenous saline flush injection continuous EKG monitoring was performed. The maximum heart rate attained was 73 bpm which was 50% of maximum predicted heart . Stress EKG showed[, no significant change from the resting EKG, with maximum heart rate of 73 bpm. Arrhythmia: No arrhythmia demonstrated Symptoms: Patient had no symptoms of chest pain Blood pressure at rest: [124/78 mmHg blood pressure at the end of stress: 124/78 mmHg] Myocardial perfusion protocol. [11.4 mCi ]of Technetium 99m Sestamibi was injected at rest. [ 0.4 mg ]of Regadenoson was infused per usual protocol peak infusion[33.2 mCi ]of Technetium 99m sestamibi was injected. Stress images were obtained stress and rest images were reconstructed and compared in the short axis vertical and horizontal long axis. Gated images were also obtained Perfusion SPECT analysis: Review of the images demonstrate normal uptake of sestamibi at rest, post stress images demonstrate similar uptake of sestamibi to the resting images, homogeneous tracer uptake With no evidence of reversible myocardial ischemia. Gated SPECT analysis: The gated ejection fraction is [76 %]. Wall motion showed hyperdynamic left ventricle. Conclusion: Negative Lexiscan sestamibi myocardial perfusion study for reversible myocardial ischemia Normal left ventricular systolic function Bharath Hobson MD,FACC,[facility]
--- NOTE | 2020-11-22 15:07 | DS.PCM_ITS ---
Documented by User: Umberto PORTER 11/22/20 15:39 Providers Date of Admission: 11/21/20 Primary Care Physician: Dr. Balaji Sanchez MD Consultations 11/22/20 13:26 Consult: Cardiology Routine Consulting Provider: Bharath Hobson Reason for Consult: syncopal bradycardia EMERGENT Consult: No MD Notified: Yes Date Notified: 11/22/20 Time Notified: 13:26 Method of Notification: Text Reason For Visit: CHEST PAIN, SYNCOPE Diagnosis Discharge Diagnosis (1) Syncope: Status: Acute Code(s): R55 - Syncope and collapse Qualifiers: Syncope type: unspecified Qualified Code(s): R55 - Syncope and collapse (2) Chest pain: Status: Acute Code(s): R07.9 - Chest pain, unspecified Qualifiers: Chest pain type: unspecified Qualified Code(s): R07.9 - Chest pain, unspecified Medications at Discharge Home Medications aspirin 81 mg PO QHS 07/26/17 ascorbic acid (vitamin C) 1,000 mg tablet,extended release 1,000 mg PO QDAY tab 09/01/17 coenzyme Q10 10 mg capsule 10 mg PO QDAY cap 09/01/17 glucosamine HCl 1,500 mg tablet 1,500 mg PO QDAY 09/01/17 omega-3 fatty acids 1,250 mg capsule 1,250 mg PO QDAY 09/01/17 atorvastatin 20 mg tablet 20 mg PO QHS 10/01/18 losartan 50 mg tablet 50 mg PO DAILY #90 tab 02/04/19 furosemide 20 mg tablet 20 mg PO .COMPLEX #120 tab 08/05/19 apixaban [Eliquis] 5 mg PO BID #60 tab 11/22/20 Hospital Course Summary of Care Provided Minutes Spent on Discharge: 35 Hospital Course: 1) Chest pain Stress test on 11/22/2020 demonstrated normal myocardial perfusion and an estimated ejection fraction of 76%. Troponin not elevated throughout cycle. Vital signs stable. CT-A demonstrates no evidence of PE or aortic dissection. Plan; follow-up with primary care provider within the next 2 weeks. 2) Syncope Likely vasovagal, patient had had poor oral intake the day of the event. Plan; follow-up with primary care provider in the next 2 weeks. 3) Hypokalemia Resolved, currently 3.9. Magnesium 1.9. 4) PAF Not currently on any rate controlling medication. Not on any anticoagulation. Follows up with a gas systems worker at [facility]. Plan; follow-up with gas systems worker in the next 2 weeks, initiate Eliquis on discharge. Patient seen by Umberto Hudson PA-C, under the supervision of Dr. Flor. Physical Exam Narrative Patient is a 74-year-old female comfortably resting in bed, alert and orient x3. Denies chest pain, shortness of breath, palpitations, hemoptysis, sputum production, fever, chills, N/V/D. Const alert, oriented x3 and no apparent distress HEENT normocephalic, head/scalp atraumatic and hearing grossly normal bilaterally Eyes EOMs intact bilaterally and conjunctivae normal Neck no lymphadenopathy, supple and no JVD Resp normal respiratory effort, no retractions, no use of accessory muscles and clear to auscultation bilaterally Cardio regular rate, regular rhythm, no murmurs and no JVD GI normal to inspection, nondistended, normoactive bowel sounds, soft to palpation and non-tender Extremity normal to inspection, full ROM and no clubbing, cyanosis or edema Skin no rashes or lesions noted, no wounds and skin turgor normal Neuro CN's II-XII intact bilaterally Psych affect normal Weight / BMI Weight Weight: 171 lb 15.369 oz Body Mass Index (BMI) 29.5 ABG / Lab / Microbiology Data Result Diagrams: 11/22/20 05:22 11/22/20 05:22 Laboratory: Laboratory Results - last 24 hr 11/21/20 11/21/20 11/21/20 18:25 18:25 19:10 WBC 7.3 RBC 3.45 L Hgb 10.8 L Hct 32.4 L MCV 93.9 MCH 31.3 MCHC 33.3 RDW Std Deviation 45.3 H RDW Coeff of Diogo 13.2 Plt Count 206 MPV 9.1 Immature Gran % (Auto) 0.400 Neut % (Auto) 70.2 H Lymph % (Auto) 19.3 [place] % (Auto) 8.3 Eos % (Auto) 1.5 Baso % (Auto) 0.3 Absolute Neuts (auto) 5.2 Absolute Lymphs (auto) 1.42 Nucleated RBC % 0 Sodium 136 Potassium 3.2 L Chloride 101 Carbon Dioxide 27.0 Anion Gap 8 BUN 23 H Creatinine 1.34 H Estim Creat Clear Calc 30.84 Est GFR (MDRD) Af Amer 49 L Est GFR (MDRD) Non-Af 41 L BUN/Creatinine Ratio 17.2 Glucose 175 H Lactic Acid 1.8 Calcium 8.6 Magnesium Troponin I High Sens 11.6 11/21/20 11/22/20 11/22/20 20:53 00:25 05:22 WBC RBC Hgb Hct MCV MCH MCHC RDW Std Deviation RDW Coeff of Diogo Plt Count MPV Immature Gran % (Auto) Neut % (Auto) Lymph % (Auto) [place] % (Auto) Eos % (Auto) Baso % (Auto) Absolute Neuts (auto) Absolute Lymphs (auto) Nucleated RBC % Sodium 138 Potassium 3.9 Chloride 107 Carbon Dioxide 25.0 Anion Gap 6 BUN 16 Creatinine 0.76 Estim Creat Clear Calc 41.33 Est GFR (MDRD) Af Amer 95 Est GFR (MDRD) Non-Af 79 BUN/Creatinine Ratio 21.1 H Glucose 99 Lactic Acid Calcium 8.3 L Magnesium 1.9 Troponin I High Sens 13.7 14.0 11/22/20 05:22 WBC 7.5 RBC 3.51 L Hgb 11.1 L Hct 33.7 L MCV 96.0 MCH 31.6 MCHC 32.9 RDW Std Deviation 46.7 H RDW Coeff of Diogo 13.2 Plt Count 179 MPV 9.6 Immature Gran % (Auto) 0.400 Neut % (Auto) 77.9 H Lymph % (Auto) 12.0 L [place] % (Auto) 8.2 Eos % (Auto) 1.2 Baso % (Auto) 0.3 Absolute Neuts (auto) 5.8 Absolute Lymphs (auto) 0.90 Nucleated RBC % 0 Sodium Potassium Chloride Carbon Dioxide Anion Gap BUN Creatinine Estim Creat Clear Calc Est GFR (MDRD) Af Amer Est GFR (MDRD) Non-Af BUN/Creatinine Ratio Glucose Lactic Acid Calcium Magnesium Troponin I High Sens Radiography Diagnostic Testing: Radiology Impression Chest/Abdomen/Pelvis CTA 11/21/20 18:18 IMPRESSION: No evidence of pulmonary embolism or aortic dissection. No evidence of acute cardiopulmonary or intra-abdominal process. Electronically Signed: Pedrito Bullard DO at 19:03 EDT , Service support , D/C Instructions Discharge Diet: No restrictions Meaningful Use Info Meaningful Use Diagnoses (Choose all that apply): None applicable Discharge Plan Admission Admit Date/Time: 11/21/20 20:38 Primary Reason for Your Visit: Chest pain and syncope Attending Provider: Kelly Flor Primary Care Provider: Balaji Sanchez Consulting Providers: Bharath Hobson Instructions Patient Instructions: Diagnosing Syncope, ED Chest Pain, Noncardiac Discharge Orders/Prescriptions Prescriptions: New Eliquis 5 mg tablet 5 mg PO BID Qty: 60 RF: 0 Continued coenzyme Q10 [Co Q-10] 10 mg capsule 10 mg PO QDAY RF: 0 omega-3 fatty acids 1,250 mg capsule 1,250 mg capsule 1,250 mg PO QDAY RF: 0 ascorbic acid (vitamin C) [Vitamin C With Cinthya Hips] 1,000 mg tablet extended release 1,000 mg PO QDAY RF: 0 glucosamine HCl 1,500 mg tablet 1,500 mg PO QDAY RF: 0 aspirin 81 MG tablet,chewable 81 mg PO QHS RF: 0 atorvastatin 20 mg tablet 20 mg PO QHS RF: 0 losartan 50 mg tablet 50 mg PO DAILY Qty: 90 RF: 3 furosemide 20 mg tablet 20 mg PO .COMPLEX Qty: 120 RF: 3 Referrals / Follow Up: Balaji Sanchez MD [Primary Care Provider] - Within 2 Weeks Disposition Disposition (needs filled in before D/C Order can be placed): Home, Self Care Documented by User: Dr. Kelly Flor DO 11/22/20 16:44 Providers Date of Admission: 11/21/20 Reason For Visit: CHEST PAIN, SYNCOPE Medications at Discharge Home Medications aspirin 81 mg PO QHS 07/26/17 ascorbic acid (vitamin C) 1,000 mg tablet,extended release 1,000 mg PO QDAY tab 09/01/17 coenzyme Q10 10 mg capsule 10 mg PO QDAY cap 09/01/17 glucosamine HCl 1,500 mg tablet 1,500 mg PO QDAY 09/01/17 omega-3 fatty acids 1,250 mg capsule 1,250 mg PO QDAY 09/01/17 atorvastatin 20 mg tablet 20 mg PO QHS 10/01/18 losartan 50 mg tablet 50 mg PO DAILY #90 tab 02/04/19 furosemide 20 mg tablet 20 mg PO .COMPLEX #120 tab 08/05/19 apixaban [Eliquis] 5 mg PO BID #60 tab 11/22/20 Hospital Course Operations None Procedures Stress test Summary of Care Provided Minutes Spent on Discharge: 20 Hospital Course: Mrs. Hinton is a 74-year-old white female who presented to emergency department [facility] on 11/21/2020 after syncopal episode. She reports she had gone all day without eating and was getting in the car and felt lightheaded as if she was going to pass out when she experienced a 30 to 45-second syncopal episode per her . She had no seizure activity, no loss of bowel and bladder, and no tongue biting. Her reported she came to fairly quickly and was mentating well. She reported that she had another episode where she felt as if she was going to pass out and had a syncopal episode for approximately 30 seconds which was very similar to the initial episode. She denied any chest pain or shortness of breath that was associated with this. She had no nausea or vomiting. She reports that she has had 1 syncopal episode in the past and had a negative work-up at that time. She follows with cardiology at [facility] and is currently wearing an event monitor which she started a week ago Thursday. We are unable to interrogate this de vice until she has completed her 30 days. She has a history of paroxysmal atrial fibrillation for which she is not anticoagulated. A stress test was performed and was negative. She did develop some paroxysmal atrial fibrillation which rapidly corrected while she was at stress test but had resolved by the time she returned to PCU. She also had some intermittent bradycardia most notably at night but did have a few episodes during the day for which cardiology was consulted. She is not on any rate controlling medication but has a [id number] VASc score of 3 and therefore cardiology recommended the initiation of Eliquis based on her stroke risk. She does have a baseline first-degree AV block and a chronic left bundle branch block. Our gas systems worker recommended following up with her primary gas systems worker ongoing after her event monitor was completed. She was cleared to discharge from cardiology and instructed to return to the hospital with any recurrent symptoms and to follow-up with her primary gas systems worker as directed. Physical Exam Const alert, oriented x3, no apparent distress, average body habitus, no limitations, healthy appearing and well nourished Constitutional Narrative: Well-appearing, overweight, white older female, lying in bed, appears comfortable, at bedside, nontoxic General Appearance: cooperative, comfortable, well kempt and well developed Exam Limitations: no limitations HEENT normocephalic, head/scalp atraumatic, hearing grossly normal bilaterally, moist oral mucous membranes, oropharynx normal and gingiva normal Mouth: oral and palatal mucosa normal Eyes PERRL, EOMs intact bilaterally and conjunctivae normal Neck supple Neck Narrative: Trachea midline Resp normal respiratory effort, no retractions, no use of accessory muscles and clear to auscultation bilaterally Auscultation: Negative for crackles, rales, rhonchi or wheezes Cardio regular rate, regular rhythm, S1 normal heart sound, S2 normal heart sound, no rub, no gallops, no clicks and no JVD; Negative for no murmurs Cardio Narrative: 2 out of 6 systolic murmur GI normal to inspection, nondistended, normoactive bowel sounds, soft to palpation, non-tender and non-distended Extremity normal to inspection, full ROM and no clubbing, cyanosis or edema Skin no rashes or lesions noted, no wounds, skin turgor normal and no jaundice Neuro oriented x3, CN's II-XII intact bilaterally, moves all extremities and no focal motor deficits Sensorium / Orientation: awake, alert, oriented to person, oriented to place and oriented to time Speech: speech normal Psych affect normal Psych Narrative: Very pleasant ABG / Lab / Microbiology Data Result Diagrams: 11/22/20 05:22 11/22/20 05:22 Discharge Plan Admission Admit Date/Time: 11/21/20 20:38 Primary Reason for Your Visit: Chest pain and syncope Attending Provider: Kelly Flor Primary Care Provider: Balaji Sanchez Consulting Providers: Bharath Hobson Instructions Patient Instructions: Diagnosing Syncope, ED Chest Pain, Noncardiac Discharge Orders/Prescriptions Prescriptions: New Eliquis 5 mg tablet 5 mg PO BID Qty: 60 RF: 0 Continued coenzyme Q10 [Co Q-10] 10 mg capsule 10 mg PO QDAY RF: 0 omega-3 fatty acids 1,250 mg capsule 1,250 mg capsule 1,250 mg PO QDAY RF: 0 ascorbic acid (vitamin C) [Vitamin C With Cinthya Hips] 1,000 mg tablet extended release 1,000 mg PO QDAY RF: 0 glucosamine HCl 1,500 mg tablet 1,500 mg PO QDAY RF: 0 aspirin 81 MG tablet,chewable 81 mg PO QHS RF: 0 atorvastatin 20 mg tablet 20 mg PO QHS RF: 0 losartan 50 mg tablet 50 mg PO DAILY Qty: 90 RF: 3 furosemide 20 mg tablet 20 mg PO .COMPLEX Qty: 120 RF: 3 Referrals / Follow Up: Balaji Sanchez MD [Primary Care Provider] - Within 2 Weeks Disposition Disposition (needs filled in before D/C Order can be placed): Home, Self Care Charges/Coding Visit Charges Inpatient E&M: 94070 Disch Hosp
--- NOTE | 2020-11-22 15:33 | PHA.DC.MR ---
Pharmacy Service has performed discharge medication reconciliation for this patient. No new medications at time of discharge review. Medications reviewed are from previously reported home medications. Home Medications aspirin 81 mg PO QHS 07/26/17 ascorbic acid (vitamin C) 1,000 mg tablet,extended release 1,000 mg PO QDAY tab 09/01/17 coenzyme Q10 10 mg capsule 10 mg PO QDAY cap 09/01/17 glucosamine HCl 1,500 mg tablet 1,500 mg PO QDAY 09/01/17 omega-3 fatty acids 1,250 mg capsule 1,250 mg PO QDAY 09/01/17 atorvastatin 20 mg tablet 20 mg PO QHS 10/01/18 losartan 50 mg tablet 50 mg PO DAILY #90 tab 02/04/19 furosemide 20 mg tablet 20 mg PO .COMPLEX #120 tab 08/05/19 The patient's discharge medication list was reviewed for discrepancies and discrepancies were resolved.
--- NOTE | 2020-11-22 15:50 | PCM.CONS.C ---
Assessment & Plan Assessment/Plan (1) Paroxysmal atrial fibrillation: PLAN: This 74-year-old female seen and evaluated at bedside along with the nursing staff, at bedside Patient presented with symptoms of chest pain and had syncopal episode Evidently she has a monitor/event monitor by her primary watershed program manager Also patient had a history of CAD with nonobstructive mid LAD/described luminal irregularities in 2018 Today her symptoms of chest pain resolved she does not have any further episode of chest pain and her cardiac work-up has been negative Card examination essentially normal Plan recommendation 1. Patient had evidence of paroxysmal atrial fibrillation currently patient is not on any AV blocking medication Will add anticoagulation with Eliquis based on her creatinine clearance as she is a high risk for stroke. According to CHADS-Vasc score which is more than 3. 2. She had underlying left bundle branch block with first-degree AV block and she had an event monitor and would recommend to follow-up with her primary watershed program manager to discuss further plan 3. I do not see evidence of high-grade AV block patient likely had underlying sick sinus syndrome and she need to be evaluated with primary watershed program manager to discuss finding of the event monitor as her presentation is syncope at this time. However we do not have enough evidence of requirement for a pacemaker at this point. 4. Her symptoms of chest pain is atypical and her nuclear stress test today is normal with normal myocardial perfusion and normal LV function Patient known to have history of CAD with mild luminal irregularity in 2018 with recommend risk factor control and medical therapy. (2) Syncope: QUALIFIERS: Syncope type: unspecified Qualified Code(s): R55 - Syncope and collapse (3) Chest pain: QUALIFIERS: Chest pain type: unspecified Qualified Code(s): R07.9 - Chest pain, unspecified (4) History of left heart catheterization: HPI Consult Data Date of Consult: 11/22/20 Attending Care Provider: Cardiac consultation requested to evaluate this patient who presented with chest pain and syncope HPI Narrative HPI Narrative: CHAS HERZOG, is a 74 F who presents [facility] Medical History Abnormal electrocardiogram Abnormal stress echocardiogram Afib Benign positional vertigo HTN (hypertension) LBBB (left bundle branch block) Osteoporosis Palpitations Vaso vagal episode Weakness Home Medications aspirin 81 mg PO QHS 07/26/17 [History Last Taken 11/20/20] ascorbic acid (vitamin C) 1,000 mg tablet,extended release 1,000 mg PO QDAY tab 09/01/17 [History Last Taken 11/21/20] coenzyme Q10 10 mg capsule 10 mg PO QDAY cap 09/01/17 [History Last Taken 11/21/20] glucosamine HCl 1,500 mg tablet 1,500 mg PO QDAY 09/01/17 [History Last Taken 11/21/20] omega-3 fatty acids 1,250 mg capsule 1,250 mg PO QDAY 09/01/17 [History Last Taken 11/21/20] atorvastatin 20 mg tablet 20 mg PO QHS 10/01/18 [History Last Taken 11/20/20] losartan 50 mg tablet 50 mg PO DAILY #90 tab 02/04/19 [Rx Last Taken 11/21/20] furosemide 20 mg tablet 20 mg PO .COMPLEX #120 tab 08/05/19 [Rx Last Taken 11/20/20] apixaban [Eliquis] 5 mg PO BID #60 tab 11/22/20 [Rx Last Taken Unknown] Allergy/AdvReac Type Severity Reaction Status Date / Time hydrochlorothiazide Allergy Unknown Verified 11/21/20 18:20 codeine AdvReac Unknown Verified 11/21/20 18:20 lisinopril AdvReac hyperkalemi Verified 11/21/20 18:20 a Family History Mother Heart disease atrial fib CVA (cerebral vascular accident) Father CVA (cerebral vascular accident) Sister CAD (coronary artery disease) age 50 Hypertension Brother Hypertension Surgical History H/O total hysterectomy History of left heart catheterization (10/05/17) History of tonsillectomy Hx of cholecystectomy left foot surgery Social History Smoking Status: Never smoker Physical Exam Narrative Patient seen at bedside with the nursing staff, at bedside at time of evaluation She is alert orientated x3 not in acute distress Cardiovascular examination cardiac cath lab technologist showed underlying normal sinus with 30 degree AV block S1-S2 normal, no murmur no systolic or diastolic murmur, no pericardial rub Chest exam clear to auscultation bilaterally Examination lower extremity no clubbing no cyanosis no extremity edema Examination of central nervous system no focal neurological deficit noted Patient has event monitor placed by her primary watershed program manager in [place]. Also noted she had evidence of paroxysmal atrial fibrillation. Patient had no active chest pain Objective Data Vital Signs: Vital Signs Temp Pulse Resp BP Pulse Ox 97.9 F 50 L 16 140/54 H 100 11/22/20 14:35 11/22/20 15:40 11/22/20 14:35 11/22/20 14:35 11/22/20 14:35 Oxygen Flow Rate (L/min) 2 Oxygen Delivery Method Room Air Weight: 171 lb 15.369 oz Body Mass Index (BMI) 29.5 Intake & Output: Intake and Output for Last 24 Hours 11/20/20 11/21/20 11/22/20 23:59 23:59 23:59 Intake Total 1785 / 1785 Balance 1785 / 1785 Lab / Micro Data Result Diagrams: 11/22/20 05:22 11/22/20 05:22 Labs: Laboratory Results - last 24 hr 11/21/20 11/21/20 11/21/20 18:25 18:25 19:10 WBC 7.3 RBC 3.45 L Hgb 10.8 L Hct 32.4 L MCV 93.9 MCH 31.3 MCHC 33.3 RDW Std Deviation 45.3 H RDW Coeff of Diogo 13.2 Plt Count 206 MPV 9.1 Immature Gran % (Auto) 0.400 Neut % (Auto) 70.2 H Lymph % (Auto) 19.3 [place] % (Auto) 8.3 Eos % (Auto) 1.5 Baso % (Auto) 0.3 Absolute Neuts (auto) 5.2 Absolute Lymphs (auto) 1.42 Nucleated RBC % 0 Sodium 136 Potassium 3.2 L Chloride 101 Carbon Dioxide 27.0 Anion Gap 8 BUN 23 H Creatinine 1.34 H Estim Creat Clear Calc 30.84 Est GFR (MDRD) Af Amer 49 L Est GFR (MDRD) Non-Af 41 L BUN/Creatinine Ratio 17.2 Glucose 175 H Lactic Acid 1.8 Calcium 8.6 Magnesium Troponin I High Sens 11.6 11/21/20 11/22/20 11/22/20 20:53 00:25 05:22 WBC RBC Hgb Hct MCV MCH MCHC RDW Std Deviation RDW Coeff of Diogo Plt Count MPV Immature Gran % (Auto) Neut % (Auto) Lymph % (Auto) [place] % (Auto) Eos % (Auto) Baso % (Auto) Absolute Neuts (auto) Absolute Lymphs (auto) Nucleated RBC % Sodium 138 Potassium 3.9 Chloride 107 Carbon Dioxide 25.0 Anion Gap 6 BUN 16 Creatinine 0.76 Estim Creat Clear Calc 41.33 Est GFR (MDRD) Af Amer 95 Est GFR (MDRD) Non-Af 79 BUN/Creatinine Ratio 21.1 H Glucose 99 Lactic Acid Calcium 8.3 L Magnesium 1.9 Troponin I High Sens 13.7 14.0 11/22/20 05:22 WBC 7.5 RBC 3.51 L Hgb 11.1 L Hct 33.7 L MCV 96.0 MCH 31.6 MCHC 32.9 RDW Std Deviation 46.7 H RDW Coeff of Diogo 13.2 Plt Count 179 MPV 9.6 Immature Gran % (Auto) 0.400 Neut % (Auto) 77.9 H Lymph % (Auto) 12.0 L [place] % (Auto) 8.2 Eos % (Auto) 1.2 Baso % (Auto) 0.3 Absolute Neuts (auto) 5.8 Absolute Lymphs (auto) 0.90 Nucleated RBC % 0 Sodium Potassium Chloride Carbon Dioxide Anion Gap BUN Creatinine Estim Creat Clear Calc Est GFR (MDRD) Af Amer Est GFR (MDRD) Non-Af BUN/Creatinine Ratio Glucose Lactic Acid Calcium Magnesium Troponin I High Sens Rhythm Strip Rhythm Strip: Sinus bradycardia Rate: 50 Ectopy: None Cardiology Labs/Tests 11/21/20 18:25: WBC 7.3, RBC 3.45 L, Hgb 10.8 L, Hct 32.4 L, MCV 93.9, MCH 31.3, MCHC 33.3, Plt Count 206, MPV 9.1, Immature Gran % (Auto) 0.400, Neut % (Auto) 70.2 H, Lymph % (Auto) 19.3, [place] % (Auto) 8.3, Eos % (Auto) 1.5, Baso % (Auto) 0.3, Absolute Neuts (auto) 5.2, Nucleated RBC % 0 11/21/20 18:25: Sodium 136, Potassium 3.2 L, Chloride 101, Carbon Dioxide 27.0, Anion Gap 8, BUN 23 H, Creatinine 1.34 H, Est GFR (MDRD) Af Amer 49 L, Est GFR (MDRD) Non-Af 41 L, BUN/Creatinine Ratio 17.2, Glucose 175 H, Calcium 8.6 11/21/20 19:10: Lactic Acid 1.8 11/22/20 05:22: Sodium 138, Potassium 3.9, Chloride 107, Carbon Dioxide 25.0, Anion Gap 6, BUN 16, Creatinine 0.76, Est GFR (MDRD) Af Amer 95, Est GFR (MDRD) Non-Af 79, BUN/Creatinine Ratio 21.1 H, Glucose 99, Calcium 8.3 L, Magnesium 1.9 11/22/20 05:22: WBC 7.5, RBC 3.51 L, Hgb 11.1 L, Hct 33.7 L, MCV 96.0, MCH 31.6, MCHC 32.9, Plt Count 179, MPV 9.6, Immature Gran % (Auto) 0.400, Neut % (Auto) 77.9 H, Lymph % (Auto) 12.0 L, [place] % (Auto) 8.2, Eos % (Auto) 1.2, Baso % (Auto) 0.3, Absolute Neuts (auto) 5.8, Nucleated RBC % 0 Rhythm: Normal sinus with first-degree AV block no evidence of high-grade AV block noted. EKG: Abnormal electrocardiogram with evidence of left bundle branch block,Ist degree AV block. Stress Test: Lexiscan sestamibi myocardial perfusion study is normal with no evidence of reversible myocardial ischemia and preserved LV systolic function. Radiography Diagnostic Testing: Radiology Impression Chest/Abdomen/Pelvis CTA 11/21/20 18:18 IMPRESSION: No evidence of pulmonary embolism or aortic dissection. No evidence of acute cardiopulmonary or intra-abdominal process. Electronically Signed: Pedrito Bullard DO at 19:03 EDT , Service support ,
== END 2020-11-22 15:06 | disposition home or self-care (01) ==
LOC: ED 20:08 → PCU 20:55
PROVIDERS: Emergency Provider Emergency Medicine; Visit Provider Internal Medicine
DX: R07.89 Other chest pain (principal); R55 Syncope and collapse; I48.0 Paroxysmal atrial fibrillation; I10 Essential (primary) hypertension; I44.7 Left bundle-branch block, unspecified; E87.6 Hypokalemia; R00.1 Bradycardia, unspecified; I44.0 Atrioventricular block, first degree; Z79.82 Long term (current) use of aspirin; Z79.899 Other long term (current) drug therapy; I25.10 Atherosclerotic heart disease of native coronary artery without angina pectoris; R94.31 Abnormal electrocardiogram [ECG] [EKG]
CPT/HCPCS: 36415; 71275; 74174; 78452; 80048; 83605; 83735; 84484; 85025; 93005; 93017; 96360; 96361; 99218; 99285; A9500; Q9967; A4216; G0378; J2785